=== PATIENT | male | born 1940 | race Caucasian/White ===

== ENCOUNTER → 2016-12-27 09:22 | Outpatient (CLI) | payer MEDICARE, OTHER ==
[2014-04-01 08:30] VITALS: BMI 22.8
[~2016-12-27 09:22] MED LIST: AMBIEN10 MG PO; BAYER CHEWABLE81 MG PO; DYAZIDE 37.5/251 CAP PO; FISH OIL 1,0001 CA1 PO; HYDROCHLOROTHIA25 MG PO; LIPITOR20 MG PO; LOPRESSOR25 MG PO; NEURONTIN 300300 MG PO; PLAVIX75 MG PO
[2017-02-21 07:23] VITALS: BMI 21.3
== END | disposition home or self-care (01) ==
LOC: D.CT 09:22
DX: I71.6 Thoracoabdominal aortic aneurysm, without rupture (principal)

== ENCOUNTER 2017-01-30 04:35 | Outpatient (CLI) | payer MEDICARE, OTHER ==
[~2017-01-30] VITALS: Ht 172.7 cm; Wt 61.8 kg
--- NOTE | ~2017-01-30 | HEMODYNAMI ---
PATIENT:LEAH GUSMAN MEDICAL RECORD: [id number] : 42 [id number] ADMISSION DATE: 01/30/17 Generatedon:01/30/201715:26 Patient name: LEAH GUSMAN Patient #: [id number] SSN: : 1940 Date of study: 01/30/2017 Page: Of Hemodynamic Procedure Report Patient Data Patient Demographics Procedure consent was obtained First Name: LEAH Gender: Male Last Name: NASEEM : 1940 [facility] Initial: THOMAS Age: 76 year(s) Patient #: [id number] Race: Unknown Additional ID: [id number] Contact details Address: [address] [place] [address] State: [place] City: [place] Zip code: [address] Past Medical History Allergies: No known allergies Admission Admission Data Admission Date: 01/30/2017 Admission Time: 5:16 Admit Source: Other Room #: D.2116 Lab Results Lab Result Date: 01/30/2017 Lab Result Time: 0:00 Biochemistry Name Units Result Min Max Creatinine mg/dl 1.4 --(----)*- 0.6 1.3 CBC Name Units Result Min Max Hemoglobin g/dl 16.7 --(---*)-- 13.5 17.5 Procedure Procedure Types Cath Procedure Diagnostic Procedure [facility] w/Coronaries PCI Procedure Coronary Stent Initial Miscellaneous Procedures Moderate Sedation up to 30 minutes Procedure Description Procedure Date Procedure Date: 01/30/2017 Procedure Start Time: 14:55 Procedure End Time: 15:26 Procedure Staff Name Function Pawel Das MD Performing Physician Sean Macias RT Scrub Jaleesa Booker RN Nurse Quique Davis RN Flight Engineer Erika Jordan RT Monitor Procedure Data Cath Procedure Fluoroscopy Diagnostic fluoroscopy Total fluoroscopy Time: 4.6 time: 4.6 min min Diagnostic fluoroscopy Total fluoroscopy dose: 601 dose: 601 mGy mGy Contrast Material Contrast Material Type Amount (ml) Isovue 300 105 Entry Location Entry Primary Successful Side Size Upsize Upsize Entry Closure Succes sful Closure Location (Fr) 1 (Fr) 2 (Fr) Remarks Device Remarks Femoral Right 5 Fr 6 Fr Exoseal artery Short Estimated blood loss: 10 ml Diagnostic catheters Device Type Used For End Catheter Placement Cordis 5Fr JL 4.0 Left Coronary Catheter (MP) Angiography Diagnostic Infinity 5Fr Right Coronary AL 1 catheter Angiography Cordis 5Fr Pigtail LV Angiography Catheter (MP) Procedure Complications No complications Procedure Medications Medication Administration Route Dosage Oxygen NC 2 l/min Lidocaine 2% added to field 20 Heparin Flush Bag added to field 2 bags (1000units/500ml NS) 0.9% NaCl I.V. 100 ml/hr Fentanyl I.V. 50 mcg Versed I.V. 1 mg Fentanyl I.V. 50 mcg Versed I.V. 1 mg Fentanyl I.V. 50 mcg Fentanyl I.V. 50 mcg Heparin Bolus I.V. 6500 units Plavix P.O. 600 mg Hemodynamics Rest HGB: 16.7 (g/dl) Heart Rate: 81 (bpm) Pressure Samples Time Site Value (mmHg) Purpose Heart Use Rate(bpm) 15:06 LV 107/-8,8 EDP 94 15:07 AO 98/58(75) Pullback 86 15:07 LV 109/-7,9 Pullback 86 Gradients Valve Time Site 1 Site 2 Mean SEP/DFP Peak To Heart Use (mmHg) (sec/min) Peak Rate (mmHg) (bpm) Aortic 15:07 LV AO 14 19 11 86 109/-7,9 98/58(75) Calculations Valve P-P Mean Valve Index Valve Source Name Gradient Area Flow (cm2) Aortic 11 14 11 14 Snapshots Pre Cath Intra NCS Post Cath Vital Signs Time Heart Resp SPO2 etCO2 AR9secm NIBP (mmHg) Rhythm Pain Sedation Rate (ipm) (%) (mmHg) (mmHg) Status Level (bpm) 14:41:41 96 16 95 0 0 134/74(108) NSR 0 (11) 10(A) , No pain 14:45:53 88 19 98 0 0 113/74(92) NSR 0 (11) 10(A) , No pain 14:50:05 79 18 98 0 0 103/70(86) NSR 0 (11) 10(A) , No pain 14:54:13 80 18 98 0 0 110/68(82) NSR 0 (11) 9(A) , No pain 14:58:23 104 18 97 0 0 113/71(86) NSR 0 (11) 9(A) , No pain 15:02:35 84 17 98 0 0 110/66(87) NSR 0 (11) 9(A) , No pain 15:06:45 79 18 97 0 0 113/69(92) NSR 0 (11) 9(A) , No pain 15:10:59 109 18 97 0 0 102/59(93) NSR 0 (11) 9(A) , No pain 15:15:09 124 18 98 0 0 107/61(87) NSR 0 (11) 9(A) , No pain 15:19:19 97 18 98 0 0 107/63(88) NSR 0 (11) 10(A) , No pain 15:23:28 96 18 98 0 0 102/64(77) NSR 0 (11) 10(A) , No pain Medications Time Medication Route Dose Verified Delivered Reason Notes Effectiveness by by 14:43:24 Oxygen NC 2 Quique Buffie used for l/min Ryan Booker foreign trade teacher RN 14:43:31 Lidocaine 2% added 20ml Quique Pawel for local to vial Ryan Das MD anesthetic field RN 14:43:47 Heparin Flush added 2 Pawel Pawel used for Bag to bags Thiago Das MD procedure (1000units/500ml field NS) 14:43:55 0.9% NaCl I.V. 100 Pawel Buffie Per physician ml/hr Thiago Booker RN 14:48:22 Fentanyl I.V. 50 Pawel Buffie for sedation mcg Thiago Booker RN 14:48:31 Versed I.V. 1 mg Pawel Buffie for sedation Thiago Booker RN 14:53:22 Fentanyl I.V. 50 Pawel Buffie for sedation mcg Thiago Booker RN 14:53:25 Versed I.V. 1 mg Pawel Buffie for sedation Thiago Booker RN 15:01:23 Fentanyl I.V. 50 Pawle Buffie for sedation mcg Thiago Booker RN 15:08:46 Fentanyl I.V. 50 Pawel Buffie for sedation mcg Thiago Booker RN 15:11:27 Heparin Bolus I.V. 6500 Pawel Lazcano for units Thiago Booker RN anticoagulation 15:18:54 Plavix P.O. 600 Pawel Lazcano for mg Thiago Booker RN antiplatelet therapy Procedure Log Time Note 14:18:13 Quique Davis RN sent for patient. Start room use. 14:27:41 Diagnostic Cath Status : Elective 14:28:20 Time tracking: Regular hours 14:28:24 Plan of Care:Hemodynamics will remain stable., Cardiac rhythm will remain stable., Comfort level will be maintained., Respiratory function will remain adequate., Patient/ family verbilizes understanding of procedure., Procedure tolerated without complication., Recovers from procedure without complications.. 14:28:29 Patient received from Pre/Post Procedure Room to CCL 1 Alert and oriented. Tansferred to table in Supine position. 14:28:30 Warm blankets applied, and agatha hugger turned on for patient comfort. 14:28:30 Correct patient and procedure confirmed by team. 14:28:31 Signed procedure consent form obtained from patient. 14:28:32 ECG and BP/O2 sat monitors applied to patient. 14:28:33 Full Disclosure recording started 14:28:36 Use device set Femoral Dx 14:28:37 Acist Syringe opened to sterile field. 14:28:37 Bag Decanter opened to sterile field. 14:28:38 Medline Cath Pack opened to sterile field. 14:28:38 Terumo 5Fr [place]ot Sheath opened to sterile field. 14:28:39 St Ethan 260cm J .035 wire opened to sterile field. 14:28:39 Acist Hand Control opened to sterile field. 14:28:40 Acist Manifold opened to sterile field. 14:28:40 Diagnostic Infinity 5Fr Multipack catheter opened to sterile field. 14:28:41 Tegaderm 4 x 4 opened to sterile field. 14:40:32 Vital chart was started 14:40:36 Rhythm: sinus rhythm 14:40:49 H&P Date Dictated: 01/30/2017 Within 30 days and on chart.. 14:40:51 Pre-procedure instructions explained to patient. 14:40:51 Pre-op teaching completed and patient verbalized understanding. 14:40:52 Family in waiting room. 14:40:54 Patient NPO since Midnight. 14:41:02 Patient allergic to No known allergies 14:41:05 Is the patient allergic to Iodine/contrast media? No. 14:41:38 Is patient on blood thinner?No 14:41:42 Patient diabetic? No. 14:41:56 Previous problem with sedation/anesthesia? No ? 14:41:58 Snore? Yes 14:42:00 Sleep apnea? No 14:42:01 Deviated septum? No 14:42:02 Opens mouth fully? Yes 14:42:03 Sticks out tongue? Yes 14:42:06 Airway obstruction? No ? 14:42:11 Dentures? Yes In 14:42:16 Pre procedure: right dorsailis pedis pulse 2+ Normal; easily identifiable; not easily obliterated 14:42:20 Patient pain scale 0/10 ?. 14:42:36 IV patent on arrival in right forearm with 0.9% NaCl at [facility]. 14:43:02 Lab Result : Creatinine 1.4 mg/dl 14:43:02 Lab Result : Hemoglobin 16.7 g/dl 14:43:06 Lab results completed and on chart. 14:43:09 Right groin area was prepped with chlora-prep and draped in sterile fashion 14:43:10 Alarms reviewed by R. N. 14:43:10 Sharps counted by scrub and verified by R.N. 14:43:15 Baseline sample Acquired. 14:43:21 Admit Source: Other 14:43:24 Oxygen 2 l/min NC was given by Jaleesa Booker RN; used for procedure; 14:43:31 Lidocaine 2% 20ml vial added to field was given by Pawel Das MD; for local anesthetic; 14:43:47 Heparin Flush Bag (1000units/500ml NS) 2 bags added to field was given by Pawel Das MD; used for procedure; 14:43:55 0.9% NaCl 100 ml/hr I.V. was given by Jaleesa Booker RN; Per physician; 14:45:07 IV Extension Set opened to sterile field. 14:47:46 Final Timeout: patient, procedure, and site verified with staff and physician. All members of the team are in agreement. 14:47:50 Right groin site verified by team. 14:47:53 Physical assessment completed. ASA score P 2 - A patient with mild systemic disease as per Pawel Das MD. 14:47:57 Sedation plan: IV Moderate Sedation Versed, Fentanyl 14:48:22 Fentanyl 50 mcg I.V. was given by Jaleesa Booker RN; for sedation; 14:48:31 Versed 1 mg I.V. was given by Jaleesa Booker RN; for sedation; 14:51:34 Zero performed for pressure channel P1 14:51:40 Zero performed for pressure channel P1 14:52:04 Procedure started. 14:53:22 Fentanyl 50 mcg I.V. was given by Jaleesa Booker RN; for sedation; 14:53:25 Versed 1 mg I.V. was given by Jaleesa Booker RN; for sedation; 14:55:00 Local anesthetic to right femoral artery with Lidocaine 2% by Pawel Das MD.INITIAL ACCESS ONLY 14:55:58 A 5 Fr sheath was inserted into the Right Femoral artery 14:56:21 A Cordis 5Fr JL 4.0 Catheter (MP) was advanced over the wire and used for Left Coronary Angiography. 14:57:59 140Fire BasixCompak Inflation Kit opened to sterile field. 14:57:59 Miles BMW Meherrin 2 J-tip 300cm 0.014 guide wir opened to sterile field. 14:58:00 High Pressure Extension Tubing (Thiago) opened to sterile field. 14:58:09 Terumo 6Fr [place]ot Sheath opened to sterile field. 15:00:05 Catheter removed. 15:01:17 A Diagnostic Infinity 5Fr AL 1 catheter was advanced over the wire and used for Right Coronary Angiography. 15:01:23 Fentanyl 50 mcg I.V. was given by Jaleesa Booker RN; for sedation; 15:04:54 Catheter removed. 15:05:06 Cordis 6FR XBLAD 3.5 guide catheter opened to sterile field. 15:05:13 A Cordis 5Fr Pigtail Catheter (MP) was advanced over the wire and used for LV Angiography. 15:06:24 LV gram done using CROWELL 15:06:25 LV hemodynamics recorded. 15:06:28 Injector settings: Ml/sec: 10, Volume: 20, 15:06:38 EF : 50 % 15:07:37 Catheter removed. 15:08:03 Sheath upsized to a 6 Fr Short. 15:08:46 Fentanyl 50 mcg I.V. was given by Buffie Booker RN; for sedation; 15:09:55 6 Fr XBLAD 3.5 guide catheter was inserted over the wire 15:11:27 Heparin Bolus 6500 units I.V. was given by Jaleesa Booker RN; for anticoagulation; 15:12:11 BMW wire advanced. 15:16:07 Inflation Number: 1 A Medtronic Resolute 3.0 X 26 stent was prepped and advanced across the Prox LAD. The stent was deployed at 13 SELVIN for 0:33 (min:sec). 15:17:32 Stent catheter was removed intact over wire. 15:17:33 Wire removed. 15:17:33 Guide catheter removed. 15:17:48 Sheath removed intact; hemostasis achieved with Exoseal to the Right Femoral artery. 15:17:59 Cordis 6Fr Exoseal opened to sterile field. 15:18:03 Procedure ended.(Physican Out) 15:18:54 Plavix 600 mg P.O. was given by Jaleesa Booker RN; for antiplatelet therapy; 15:19:04 Fluoroscopy time 04.60 minutes. 15:19:10 Flurop Dose total: 601 15:19:10 Fluoroscopy dose: 601 mGy 15:19:14 Contrast amount:Isovue 300 105ml. 15:19:15 Sharps counted by scrub and verified by R.N. 15:19:17 Insertion/operative site no bleeding no hematoma. 15:19:21 Post-op/insertion site Right Femoral artery dressed using a 4 x 4 and Tegaderm. 15:19:24 Post right femoral artery:stable, clean and dry 15:19:25 Post Procedure Pulses reassessed and unchanged 15:19:27 Post-procedure physical assessment completed. ASA score P 2 - A patient with mild systemic disease as per Pawel Das MD. 15:19:29 Post procedure rhythm: unchanged. 15:19:33 Estimated blood loss: 10 ml 15:19:35 Post procedure instruction explained to patient.Patient verbalizes understanding. 15:19:35 Patient needs reinforcement of post procedure teaching. 15:19:55 Procedure type changed to Cath procedure, Diagnostic procedure, LHC, LHC w/Coronaries, PCI procedure, Coronary Stent Initial, Miscellaneous Procedures, Moderate Sedation up to 30 minutes 15:21:04 Procedure Complication : No complications 15:21:06 See physician's report for complete and final results. 15:24:00 Procedure and supply charges have been captured, reviewed, submitted and are correct. 15:26:04 Vital chart was stopped 15:26:06 Report given to Pre/Post Procedure Room. 15:26:09 Patient transfered to Pre/Post Procedure Room with Stretcher. 15:26:19 Procedure ended. 15:26:19 Full Disclosure recording stopped 15:26:23 End room use (Document Last) Intervention Summary Intervention Notes Time ActionType Lesion and Equipment Action# Pressure Duration Attributes Used 15:16:07 Place stent Prox LAD Medtronic 1 13 00:33 Resolute 3.0 X 26 stent Device Usage Item Name Manufacture Quantity Catalog Hospital Part Current Minimal Lot# / Number Charge Number Stock Stock Serial# Code Acist Acist 1 29071 106833 779170 102638 20 Syringe Medical Systems Inc Bag Microtek 1 2002S 423878 33072 446987 5 Decanter Medical Inc. Medline Cardinal 1 [id number] 232159 57901 911088 5 Cath Pack Health Terumo 5Fr Terumo 1 PAG135 212180 654424 718799 [address] [facility] Ethan 1 303083 430588 411448 905540 30 260cm J .035 wire Acist Hand Acist 1 61808 436675 118513 352413 5 Control Medical Systems Inc Acist Acist 1 67531 128862 811400 146365 5 Manifold Medical Systems Inc Diagnostic Cardinal 1 NL2191 090892 91864 835165 30 Auris Medical 5Fr Multipack catheter Tegaderm 4 3M 1 1626W 584608 539648 837258 5 x 4 IV Hospira 1 82688-77 723835 20949 881879 5 Extension Set Cordis 5Fr Cardinal 1 686297 5 JL 4.0 Health Catheter (MP) Merit Merit 1 AB5735 538060 366576 538435 15 BasixCompak Medical Inflation Kit Miles BMW Miles 1 [id number] 004272 006595 842927 5 Meherrin 2 Vascular J-tip 300cm 0.014 guide wir High Merit 1 [id number] 206641 52246 745519 10 Pressure Medical Extension Tubing (Das) Terumo 6Fr Terumo 1 XYB350 528247 858797 198501 40 Man[place] Sabot Sheath Diagnostic Cardinal 1 135640M 199618 150916 485667 15 Infinity Health 5Fr AL 1 catheter Cordis 6FR Cardinal 1 [id number] 948425 576444 580608 10 XBLAD 3.5 Health guide catheter Cordis 5Fr Cardinal 1 542556 5 Pigtail Health Catheter (MP) Medtronic Medtronic 1 [id number] 135205 155871 3 [id number] Resolute 3.0 X 26 stent Cordis 6Fr Cardinal 1 EX600 166804 773736 933810 10 [facility] [employer] Signature Audit [place] Stage Time Signature Unsigned Intra-Procedure 01/30/2017 Erika 3:26:37 PM Counts RT(R) Signatures Monitor : Erika Signature : Counts RT Date : Time : [address] [address]
[~2017-01-30 04:35] MED LIST changes: -AMBIEN10 MG PO; -DYAZIDE 37.5/251 CAP PO
[2017-01-30 05:03] LABS: BASOPHILS 0.3 % (0.0-2.0); EOSINOPHILS 1.1 % (0-7); HEMOGLOBIN 16.7 g/dL (13.5-17.5); IMMATURE GRANULOCYTES 0.3 % (0-5); LYMPHOCYTES 13.4 % (15-50); MCHC 34.8 g/dL (31.0-37.0); MEAN PLATELET VOLUME 10.7 fL (7.4-10.4); MONOCYTES 9.9 % (2-11); PLATELET COUNT 153 10x3/uL (130-400); RBC 5.22 10x6/uL (4.20-6.10); RDW 12.5 % (11.5-14.5); WBC 11.9 10x3/uL (4.8-10.8)
[2017-01-30 05:24] LABS: ALBUMIN 3.7 g/dL (3.4-5.0); ALKALINE PHOSPHATASE 74 U/L (46-116); ALT (SGPT) 26 U/L (10-68); BILIRUBIN - TOTAL 1.27 mg/dL (0.2-1.3); CALC OSMOLALITY 281 mosm/kg (275-300); CALCIUM 9.5 mg/dL (8.5-10.1); CARBON DIOXIDE 31.3 mmol/L (21.0-32.0); CHLORIDE - SERUM 101 mmol/L (98-107); CREATININE - SERUM 1.4 mg/dL (0.6-1.3); GLUCOSE 131 mg/dL (74-106); PROTEIN - SERUM 7.4 g/dL (6.4-8.2); SODIUM 139 mmol/L (136-145); UREA NITROGEN 18 mg/dL (7-18); eGFR NON AFRICAN AMERICAN 52 mL/min (90-120)
[2017-01-30 05:35] LABS: CHOL - HDL RATIO 2.5 ratio (2.3-4.9); CHOLESTEROL, TOTAL 171 mg/dL (0-200); CKMB 1.2 U/L (0.0-3.6); CREATINE KINASE 106 UL (21-232); HDL CHOLESTEROL 69 mg/dL (32-96); LDL CHOLESTEROL 90 mg/dL (0-100); LDL-HDL RATIO 1.3 ratio (1.5-3.5); TRIGLYCERIDE 61 mg/dL (30-200)
[2017-01-30 05:36] LABS: TROPONIN-I < 0.017 ng/mL (0.000-0.060)
--- NOTE | 2017-01-30 07:04 | NUR ---
NEW ADMIT FROM ER BY W/C. JHONYINTED TO ROOM. CALL LIGHT IN REACH. WILL CONT. PLAN OF CARE.
[2017-01-30 07:55] VITALS: BP 88/56; Ht 172.7 cm; Wt 61.8 kg
[2017-01-30 08:05] VITALS: BP 88/56
[2017-01-30] MEDS ORDERED: DYAZIDE 37.5/251 CAP PO (08:17)
--- NOTE | 2017-01-30 10:15 | NUR ---
MORPHINE 4MG GIVEN FOR C/O C/P. CONSENTS SIGNED FOR [facility]. WILL CONT. PLAN OF CARE.
--- NOTE | 2017-01-30 14:15 | NUR ---
PRE-OPS GIVEN. TO OLERICULTURE TEACHER BY BED.
--- NOTE | 2017-01-30 15:43 | NUR ---
BACK FROM PERINATAL BREASTFEEDING ASSISTANT. RIGHT GROIN STABLE WITHOUT BLEEDING OR HEMATOMA NOTED. WILL MONITOR.
--- NOTE | 2017-01-30 19:39 | NUR ---
RESUMED CARE OF PT, LYING IN BED RESPIRATIONS EVEN AND UNLABORED ON 2LPM VIA NC. 76 SR ON TELEMETRY. RIGHT FOREARM NS @ 100. NO NEEDS NOTED AT THIS TIME. WILL CONTINUE TO MONITOR. SEE NURSE ASSESSMENT. CALL LIGHT IN REACH.
--- NOTE | 2017-01-30 23:49 | NUR ---
MORPHINE 4MG IVP FOR CHEST PAIN 8:10. STATES THE PAIN IS JUST BAD IF NOT A LITTLE WORSE THAN WHEN HE CAME TO THE ER.
[2017-01-31] VITALS: BP 112/61
[2017-01-31 04:00] VITALS: BP 97/43
--- NOTE | 2017-01-31 06:26 | NUR ---
NO CHANGES FROM PREVIOUS ASSESSMENT, CALL LIGHT IN REACH. WILL CONTINUE TO WITH PLAN OF CARE.
[2017-01-31 08:00] VITALS: BP 101/66
--- NOTE | 2017-01-31 09:50 | NUR ---
TELEMETRY SR WITH FREQUENT PVCS NOTED. JOCELYNE AT BS. CALL LIGHT IN REACH. NEW BRUNO.
--- NOTE | 2017-01-31 10:05 | NUR ---
AMBULATES HALLWAY. STATES PAIN IN CHEST IS SUBSIDING.
[2017-01-31 11:23] VITALS: BP 103/65
[2017-01-31] MEDS ORDERED: PLAVIX75 MG PO (12:01)
--- NOTE | 2017-01-31 12:41 | NUR ---
IV AND TELEMETRY DCD. DC PLANS GIVEN. UNDERSTANDING VOICED. ESCORTED TO CAR BY W/C.
--- NOTE | 2017-02-12 08:17 | OP ---
PATIENT NAME: LEAH GUSMAN MEDICAL RECORD: [id number] :42 LOCATION:D.CAT ADMISSION DATE: SURGEON: NORA NARANJO M.D. DATE OF OPERATION: 01/30/2017 Catheterization Report PROCEDURES PERFORMED: 1. Selective coronary angiography. 2. Left heart catheterization with ventriculogram. 3. PTCA and stent placed in the LAD. INDICATION: A 76-year-old gentleman, who presents with unstable angina and a history of coronary artery disease. EQUIPMENT USED: Diagnostic 5-[place] JL4, AL1, pigtail catheter. INTERVENTION: A 6-[place] XB LAD guide, BMW guidewire, 3.0 x 26 mm Resolute stent. TECHNIQUE: A 5-[place] sheath was inserted in retrograde fashion in the right common femoral artery. Next, selective coronary angiography was performed in standard 5-[place] JL4 and AL1 catheters. Left heart catheterization was performed using pigtail catheter. CORONARY ANATOMY: 1. Left main: Left main trunk is moderate in caliber. It gives rise to the LAD and circumflex. There is no obstruction. 2. LAD: This is a large caliber vessel extending to the apex. The proximal mid vessel demonstrates a 90% in-stent restenosis. The mid distal vessels have been stented. There is mild restenosis seen, but does not appear to be worse than 40%. 3. Circumflex: This vessel is moderate in caliber. It has mild irregularities throughout its course, but nothing worse than 30%. 4. Right coronary artery: This vessel actually arises from the noncoronary cusp. The proximal mid vessel has been stented. There appears to be a discrete 70% to 80% in-stent restenosis in the mid portion. 5. Left ventricle: Left ventricle is normal size. No wall motion abnormalities are noted. Estimated ejection fraction is lower limits of normal around 50%. DESCRIPTION OF INTERVENTION: A 6-[place] sheath was inserted in retrograde fashion in the right common femoral artery. Next, 100 units per kilogram of heparin was infused. A 6-[place] XB LAD guide was advanced and engaged in the left main coronary artery. Next, a BMW guide wire was placed in the distal vessel. A 3.0 x 26 mm Integrity stent was placed across the stenosis. The stent was then deployed at 14 atmospheres. Injection shows stent to be patent, but a residual 20% stenosis. It was felt further dilation inside the stent might result in vessel perforation. At this point, the wire and guide were removed. IMPRESSION: Successful percutaneous transluminal coronary angioplasty and stent of the left anterior descending for in-stent restenosis. PLAN: I will likely stage him and bring him back in 1 week to perform stenting OPERATIVE REPORT [id number] LEAH GUSMAN to the right coronary artery. TRANSINT:[id number] Voice Confirmation ID: [id number] DOCUMENT ID: [id number] NORA NARANJO M.D. at 0817 CC: [id number] DICTATION DATE: 01/30/17 1527 TRANSPORTER DRIVER: 01/30/17 2324 [facility] CLI 01/31/17 [id number] [place] [address]
== END 2017-01-31 12:42 | disposition home or self-care (01) ==
LOC: OBSVTIME → D.CATH 04:35 → D.ER 04:35 → D.M2 05:16 → OBSVTIME 05:16 → D.ER 05:16 → EDSTATUS 11:30 → D.M2 01-31 12:42 → D.CATH 01-31 12:42
PROVIDERS: Emergency Medicine
DX: I25.110 Atherosclerotic heart disease of native coronary artery with unstable angina pectoris (principal); T82.855A Stenosis of coronary artery stent, initial encounter

== ENCOUNTER 2017-02-21 07:03 | Outpatient (CLI) | payer MEDICARE, OTHER ==
[~2017-02-21] VITALS: Ht 172.7 cm; Wt 63.6 kg
--- NOTE | ~2017-02-21 | HEMODYNAMI ---
PATIENT:LEAH GUSMAN MEDICAL RECORD: [id number] : 42 LOCATION:DMart[facility]CAT ADMISSION DATE: 02/21/17 Generatedon:02/21/201710:12 Patient name: LEAH GUSMAN Patient #: [id number] SSN: : 1940 Date of study: 02/21/2017 Page: Of Hemodynamic Procedure Report Patient Data Patient Demographics Procedure consent was obtained First Name: LEAH Gender: Male Last Name: NASEEM : 1940 [facility] Initial: THOMAS Age: 76 year(s) Patient #: [id number] Race: Unknown Additional ID: [id number] Contact details [address]: [address] [place] [address] State: [place] City: [place] Zip code: [address] Past Medical History Allergies: No known allergies Admission Admission Data Admission Date: 02/21/2017 Admission Time: 7:03 Lab Results Lab Result Date: 02/21/2017 Lab Result Time: 0:00 Biochemistry Name Units Result Min Max BUN mg/dl 19 --(----)*- 7 18 Creatinine mg/dl 1.1 --(--*-)-- 0.6 1.3 CBC Name Units Result Min Max Hemoglobin g/dl 15.4 --(-*--)-- 13.5 17.5 Procedure Procedure Types Cath Procedure PCI Procedure Coronary Stent Initial Miscellaneous Procedures Moderate Sedation up to 45 minutes Procedure Description Procedure Date Procedure Date: 02/21/2017 Procedure Start Time: 9:29 Procedure End Time: 10:10 Procedure Staff Name Function Pawel Das MD Performing Physician Quique Davis RN Nurse Aron Lopez RT Monitor Randell Robertson RT Scrub Procedure Data Cath Procedure Fluoroscopy Diagnostic fluoroscopy Total fluoroscopy Time: time: 15.2 min 15.2 min Diagnostic fluoroscopy Total fluoroscopy dose: 581 dose: 581 mGy mGy Contrast Material Contrast Material Type Amount (ml) Isovue 300 125 Entry Location Entry Primary Successful Side Size Upsize Upsize Entry Closure Succes sful Closure Location (Fr) 1 (Fr) 2 (Fr) Remarks Device Remarks Femoral Left 6 Fr 6 Fr Exoseal artery Short Long Procedure Complications No complications Procedure Medications Medication Administration Route Dosage Oxygen NC 2 l/min Heparin Flush Bag added to field 2 bags (1000units/500ml NS) 0.9% NaCl I.V. 100 ml/hr Fentanyl I.V. 50 mcg Versed I.V. 1 mg Fentanyl I.V. 50 mcg Versed I.V. 1 mg Versed I.V. 1 mg Versed I.V. 1 mg Heparin Bolus I.V. 6500 units Fentanyl I.V. 50 mcg Fentanyl I.V. 50 mcg Hemodynamics Rest HGB: 15.4 (g/dl) Heart Rate: 59 (bpm) Snapshots Pre Cath Intra NCS Post Cath Vital Signs Time Heart Resp SPO2 etCO2 [id number] NIBP (mmHg) Rhythm Pain Sedatio n Rate (ipm) (%) (mmHg) (mmHg) Status Level (bpm) 9:14:28 65 18 100 0 0 165/97(128) NSR 0 (11) 10(A) , No pain 9:18:47 62 17 95 0 0 148/93(127) NSR 0 (11) 10(A) , No pain 9:22:58 66 16 97 0 0 142/100(119) NSR 0 (11) 10(A) , No pain 9:27:10 66 17 100 0 0 137/86(115) NSR 0 (11) 9(A) , No pain 9:31:24 69 18 100 0 0 132/77(115) NSR 0 (11) 9(A) , No pain 9:35:36 78 18 100 0 0 123/76(110) NSR 0 (11) 9(A) , No pain 9:39:44 76 18 100 0 0 129/78(106) NSR 0 (11) 9(A) , No pain 9:43:56 82 19 100 0 0 108/73(93) NSR 0 (11) 9(A) , No pain 9:48:55 76 19 100 0 0 120/70(97) NSR 0 (11) 9(A) , No pain 9:53:01 71 18 100 0 0 115/79(90) NSR 0 (11) 9(A) , No pain 9:57:07 73 17 100 0 0 118/75(95) NSR 0 (11) 9(A) , No pain 10:01:14 80 19 100 0 0 114/75(91) NSR 0 (11) 9(A) , No pain 10:05:12 67 18 100 0 0 110/75(90) NSR 0 (11) 9(A) , No pain 10:08:12 66 17 100 0 0 117/66(95) NSR 0 (11) 9(A) , No pain Medications Time Medication Route Dose Verified Delivered Reason Notes Effectiveness by by 9:17:43 Oxygen NC 2 Quique Quique Per physician l/min Ryan Davis RN RN 9:17:51 Heparin Flush added 2 Quique Quique used for Bag to bags Ryan Davis RN procedure (1000units/500ml field RN NS) 9:18:03 0.9% NaCl I.V. 100 Quique Quique Per physician ml/hr Ryan Davis RN RN 9:20:07 Fentanyl I.V. 50 Quique Quique for sedation mcg Ryan Davis RN RN 9:20:15 Versed I.V. 1 mg Quique Quique for sedation Ryan Davis RN RN 9:22:30 Fentanyl I.V. 50 Quique Quique for sedation mcg Ryan Davis RN RN 9:22:34 Versed I.V. 1 mg Quique Quique for sedation Ryan Davis RN RN 9:29:06 Versed I.V. 1 mg Quique Quique for sedation Ryan Davis RN RN 9:31:42 Versed I.V. 1 mg Quique Quique for sedation Ryan Davis RN RN 9:39:05 Heparin Bolus I.V. 6500 Quique Quique for units Ryan Davis RN anticoagulation RN 9:52:21 Fentanyl I.V. 50 Quique Quique for sedation mcg Ryan Davis RN RN 10:00:13 Fentanyl I.V. 50 Quique Quique for sedation mcg Ryan Davis RN linesperson Log Time Note 8:55:03 Quique Davis RN sent for patient. Start room use. 8:58:11 Time tracking: Regular hours 8:58:16 Plan of Care:Hemodynamics will remain stable., Cardiac rhythm will remain stable., Comfort level will be maintained., Respiratory function will remain adequate., Patient/ family verbilizes understanding of procedure., Procedure tolerated without complication., Recovers from procedure without complications.. 9:11:11 Patient received from Pre/Post Procedure Room to CCL 1 Alert and oriented. Tansferred to table in Supine position. 9:11:12 Warm blankets applied, and agatha hugger turned on for patient comfort. 9:11:13 Correct patient and procedure confirmed by team. 9:11:14 Signed procedure consent form obtained from patient. 9:11:14 ECG and BP/O2 sat monitors applied to patient. 9:13:18 Vital chart was started 9:17:06 Baseline sample Acquired. 9:17:14 Rhythm: sinus rhythm 9:17:16 Full Disclosure recording started 9:17:34 H&P Date Dictated: 01/30/2017 Within 30 days and on chart., H&P Addendum completed by physician on day of procedure. (MUST COMPLETE FOR ALL OUTPATIENTS). 9:17:36 Pre-procedure instructions explained to patient. 9:17:36 Pre-op teaching completed and patient verbalized understanding. 9:17:37 Family in waiting room. 9:17:39 Patient NPO since Midnight. 9:17:43 Oxygen 2 l/min NC was administered by Quique Davis RN; Per physician; 9:17:48 Patient allergic to No known allergies 9:17:50 Is the patient allergic to Iodine/contrast media? No. 9:17:51 Heparin Flush Bag (1000units/500ml NS) 2 bags added to field was administered by Quique Davis RN; used for procedure; 9:17:53 Is patient on blood thinner?Yes 9:17:58 ACC The patient was administered the following blood thiners within the last 24 hours: ACCPlavix 9:18:01 Patient diabetic? No. 9:18:02 ----Pre-sedation anethsthesia assessment.---- 9:18:03 0.9% NaCl 100 ml/hr I.V. was administered by Quique Davis RN; Per physician; 9:18:05 Previous problem with sedation/anesthesia? No ? 9:18:06 Snore? Yes 9:18:08 Sleep apnea? No 9:18:09 Deviated septum? No 9:18:10 Opens mouth fully? Yes 9:18:12 Sticks out tongue? Yes 9:18:14 Airway obstruction? No ? 9:18:17 Dentures? Yes in tight 9:18:21 Pre procedure: left dorsailis pedis pulse 1+ Palpable, but thready & weak; easily obliterated 9:18:25 Patient pain scale 0/10 ?. 9:18:28 IV patent on arrival in left hand with 0.9% NaCl at 10ml/hr. 9:18:46 Lab Result : BUN 19 mg/dl 9:18:46 Lab Result : Hemoglobin 15.4 g/dl 9:18:46 Lab Result : Creatinine 1.1 mg/dl 9:18:50 Lab results completed and on chart. 9:18:53 Left groin area was prepped with chlora-prep and draped in sterile fashion 9:18:54 Alarms reviewed by R. N. 9:18:54 Sharps counted by scrub and verified by R.N. 9:18:55 --------ALL STOP TIME OUT------ 9:18:56 Final Timeout: patient, procedure, and site verified with staff and physician. All members of the team are in agreement. 9:18:57 Left groin site verified by team. 9:19:01 Physical assessment completed. ASA score P 2 - A patient with mild systemic disease as per Pawel Das MD. 9:19:04 Sedation plan: IV Moderate Sedation Versed, Fentanyl 9:20:07 Fentanyl 50 mcg I.V. was administered by Quique Davis RN; for sedation; 9:20:15 Versed 1 mg I.V. was administered by Quique Davis RN; for sedation; 9:21:02 Use device set Femoral PCI 9:21:03 Acist Syringe opened to sterile field. 9:21:04 Acist Hand Control opened to sterile field. 9:21:04 Bag Decanter opened to sterile field. 9:21:05 Medline Cath Pack opened to sterile field. 9:21:05 Terumo 6Fr [place] Sheath opened to sterile field. 9:21:05 St Ethan 260cm J .035 wire opened to sterile field. 9:21:06 Merit BasixCompak Inflation Kit opened to sterile field. 9:21:06 Acist Manifold opened to sterile field. 9:21:06 Tegaderm 4 x 4 opened to sterile field. 9:21:12 High Pressure Extension Tubing (Das) opened to sterile field. 9:21:17 Miles BMW [place] 2 J-tip 300cm 0.014 guide wir opened to sterile field. 9:21:33 Medtronic Launcher 6Fr [place] 1.0 guide catheter opened to sterile field. 9:22:30 Fentanyl 50 mcg I.V. was administered by Quique Davis RN; for sedation; 9::34 Versed 1 mg I.V. was administered by Quique Davis RN; for sedation; 9:27:27 Zero performed for pressure channel P1 9:29:06 Versed 1 mg I.V. was administered by Quique Davis RN; for sedation; 9:29:15 Procedure started. 9:29:58 Local anesthetic to left femerol artery with Lidocaine 2% by Pawel Das MD.INITIAL ACCESS ONLY 9:30:07 A 6 Fr Short sheath was inserted into the Left Femoral artery 9:31:26 6 Fr AL 1 guide catheter was inserted over the wire 9:31:42 Versed 1 mg I.V. was administered by Quique Davis RN; for sedation; 9:34:32 Guide Catheter removed. unable to cannulate vessel. 9:34:42 Terumo 6Fr [place] Destination Sheath opened to sterile field. 9:34:55 Sheath upsized to a 6 Fr Long. 9:37:02 6 Fr AL 1 guide catheter was inserted over the wire 9:39:05 Heparin Bolus 6500 units I.V. was administered by Quique Davis RN; for anticoagulation; 9:42:53 Guide catheter removed. 9:42:59 Medtronic Launcher 6Fr AL 2.0 guide catheter opened to sterile field. 9:43:10 6 Fr AL 2 guide catheter was inserted over the wire 9:48:14 Guide Catheter removed. unable to cannulate vessel. 9:51:30 6 Fr 3D RIGHT guide catheter was inserted over the wire 9:51:34 BMW wire advanced. 9:52:21 Fentanyl 50 mcg I.V. was administered by Quique Davis RN; for sedation; 9:58:34 Inflation Number: 1 A Medtronic Resolute 3.0 X 22 stent was prepped and advanced across the Mid RCA. The stent was deployed at 14 SELVIN for 0:19 (min:sec). 9:58:36 Stent catheter was removed intact over wire. 10:00:13 Fentanyl 50 mcg I.V. was administered by Quique Davis RN; for sedation; 10:01:27 Inflation number: 1 A NC Euphora 3.5 x 12 balloon was prepped and advanced across the Mid RCA1, then inflated to 14 SELVIN for 0:33 (min:sec). 10:01:56 Balloon removed over the wire. 10:02:02 Wire removed. 10:02:02 Guide catheter removed. 10:02:18 Cordis 6Fr Exoseal opened to sterile field. 10:03:17 Sheath removed intact; hemostasis achieved with Exoseal to the Left Femoral artery. 10:03:19 Procedure ended.(Physican Out) 10:03:35 Fluoroscopy time 15.20 minutes. 10:03:43 Flurop Dose total: 581 10:03:43 Fluoroscopy dose: 581 mGy 10:03:48 Contrast amount:Isovue 300 125ml. 10:03:50 Sharps counted by scrub and verified by R.N. 10:03:51 Insertion/operative site no bleeding no hematoma. 10:03:53 Post-op/insertion site Left Femoral artery dressed using a 4 x 4 and Tegaderm. 10:03:59 Post left femerol artery:stable 10:04:03 Post Procedure Pulses reassessed and unchanged 10:04:11 Post procedure: left dorsailis pedis pulse 1+ Palpable, but thready & weak; easily obliterated. 10:04:14 Post procedure rhythm: sinus rhythm 10:04:16 Post procedure instruction explained to patient.Patient verbalizes understanding. 10:09:42 Procedure type changed to Cath procedure, PCI procedure, Coronary Stent Initial, Miscellaneous Procedures, Moderate Sedation up to 45 minutes 10:09:45 Procedure and supply charges have been captured, reviewed, submitted and are correct. 10:10:15 Medtronic Launcher 6Fr 3DRIGHT guide catheter opened to sterile field. 10:10:43 Procedure Complication : No complications 10:10:46 Vital chart was stopped 10:10:46 See physician's report for complete and final results. 10:10:48 Report given to Pre/Post Procedure Room. 10:10:52 Patient transfered to Pre/Post Procedure Room with Stretcher. 10:10:56 Procedure ended. 10:10:56 Full Disclosure recording stopped 10:11:12 End room use (Document Last) Intervention Summary Intervention Notes Time ActionType Lesion and Equipment Action# Pressure Duration Attributes Used 9:58:34 Place stent Mid RCA Medtronic 1 14 00:19 Resolute 3.0 X 22 stent 10:01:27 Inflate Mid RCA1 NC 1 14 00:33 balloon Euphora 3.5 x 12 balloon Device Usage Item Name Manufacture Quantity Catalog Hospital Part Current Minimal Lot# / Number Charge Number Stock Stock Serial# Code Acist Acist 1 51240 120117 128479 705968 20 Syringe Medical Systems Inc Acist Hand Acist 1 66982 262248 489390 874391 5 Red Butler [employer] Inc Bag Microtek 1 2002S 760142 92080 272907 5 ConceptoMed Medical Inc. Medline Cardinal 1 [id number] 132286 39165 095827 5 Cath Pack Health Terumo 6Fr Terumo 1 [id number] 142344 926578 345709 [address] St Ethna 1 993717 271696 065090 748839 30 260cm J .035 wire Merit Merit 1 [id number] 962823 710623 209849 15 BasixCorsair Medical Inflation Kit Acist Acist 1 78603 945368 770288 071513 5 Options Away Medical Systems Inc Tegaderm 4 3M 1 1626W 618495 785403 679965 5 x 4 High Merit 1 [id number] 739063 30329 006849 10 Pressure Medical Extension Tubing (Das) Miles BMW Miles 1 [id number] 420888 593135 555965 5 [place] 2 Vascular J-tip 300cm 0.014 guide wir Medtronic Medtronic 1 [id number] 780712 36689 145812 1 Launcher 6Fr [place] 1.0 guide catheter Terumo 6Fr Terumo 1 RSR01 753958 48237 341814 5 [place] Destination Sheath Medtronic Medtronic 1 [id number] 211216 92444 829295 1 Launcher 6Fr [place] 2.0 guide catheter Medtronic Medtronic 1 [id number] 121244 066770 5 [id number] Resolute 3.0 X 22 stent NC Euphora Medtronic 1 [id number] 201106 746499 737532 1 [id number] 3.5 x 12 balloon Cordis 6Fr Cardinal 1 EX600 172298 161409 209310 10 Carbon Blacktronic 1 [id number] 195614 804055 007522 1 Launcher 6Fr 3DRIGHT guide catheter Signature Audit [place] Stage Time Signature Unsigned Intra-Procedure 02/21/2017 Aron Lopez 10:12:06 AM RT(R) Signatures Monitor : Aron Lopez RT Signature : Date : Time : [place] [address] [place] [address]
[~2017-02-21 07:03] MED LIST changes: +DYAZIDE 37.5/251 CAP PO
[2017-02-21] MEDS ORDERED: AMBIEN10 MG PO (07:15)
[2017-02-21 07:23] VITALS: BP 130/83; Ht 172.7 cm; Wt 63.6 kg
[2017-02-21 07:48] LABS: BASOPHILS 0.3 % (0.0-2.0); EOSINOPHILS 4.3 % (0-7); HEMATOCRIT 44.2 % (42.0-54.0); HEMOGLOBIN 15.4 g/dL (13.5-17.5); IMMATURE GRANULOCYTES 0.1 % (0-5); LYMPHOCYTES 20.8 % (15-50); MCH 31.8 pg (26.0-34.0); MCHC 34.8 g/dL (31.0-37.0); MCV 91.3 fL (80.0-100.0); MEAN PLATELET VOLUME 10.4 fL (7.4-10.4); MONOCYTES 11.2 % (2-11); NEUTROPHILS 63.3 % (40-80); PLATELET COUNT 184 10x3/uL (130-400); RBC 4.84 10x6/uL (4.20-6.10); RDW 12.7 % (11.5-14.5); WBC 7.7 10x3/uL (4.8-10.8)
[2017-02-21 07:58] LABS: ANION GAP 12.2 mmol/L (8-16); CALCIUM 8.9 mg/dL (8.5-10.1); CARBON DIOXIDE 27.5 mmol/L (21.0-32.0); CREATININE - SERUM 1.1 mg/dL (0.6-1.3); POTASSIUM - SERUM 3.7 mmol/L (3.5-5.1)
--- NOTE | 2017-02-21 10:34 | NUR ---
HR 65 CHEST PAIN DENIED BP 120/79. FEMSTOP TO L/GROIN CDI PRESSURE AT 111 INSTRUCTED PATIENT TO KEEP HEAD FLAT ON PILLOW WITH LLE STRAIGHT
--- NOTE | 2017-02-21 11:33 | NUR ---
PRESSURE RELEASED TO 75 ON FEMSTOP WITH NO BLEEDING NO HEMATOMA NOTED. VSS WITH CHEST PAIN DENIED
--- NOTE | 2017-02-21 12:00 | NUR ---
1200 PRESSURE RELEASED FROM FEMSTOP NO BLEEDING AT SITE. VSS WITH CHEST PAIN DENIED WILL MONITOR
--- NOTE | 2017-02-21 14:21 | NUR ---
1230 PT DENIES ANY C/O. VSS. DRESSING TO RIGHT GROIN IS CDI WITH NO BLEEDING OR HEMATOMA NOTED. PT HAS SERGIO SANDWICH, HAS VOIDED 400 CC USING URINAL.
--- NOTE | 2017-02-21 14:22 | NUR ---
1330 DRESSING TO RIGHT GROIN IS CDI, NO BLEEDING OR HEMATOMA NOTED. PEDAL PULSES PALPABLE. DENIES NEEDS AT THIS TIME. CALL LIGHT IN REACH. 1415 IV DC'D WITH CATH INTACT. PT DENIES ANY C/O. VSS.
--- NOTE | 2017-02-21 14:23 | NUR ---
1435 REVIEWED DC INSTRUCTIONS WITH PT AND WHO VERBALIZE UNDERSTANDING. GROIN DRESSING REMAINS CDI WITH NO BLEEDING OR HEMATOMA AFTER PT AMBULATION. PT ESCORTED TO PRIVATE AUTO VIA WC BY STAFF WITH DRIVING HIM HOME.
--- NOTE | 2017-02-22 14:54 | OP ---
PATIENT NAME: LEAH GUSMAN MEDICAL RECORD: [id number] :42 LOCATION:D.CAT ADMISSION DATE: SURGEON: NORA NARANJO M.D. DATE OF OPERATION: 02/21/2017 PROCEDURES PERFORMED: PTCA and stent placement of the right coronary artery. INDICATION: A 76-year-old gentleman, who presents with angina. He returns today for completion of staged procedure. EQUIPMENT USED: A 6-Micronesian 3D right, BMW guidewire, 3.0 x 22 mm Resolute stent, 3.5 x 12 mm Euphora balloon. DESCRIPTION OF INTERVENTION: A long 6-Micronesian sheath was inserted in retrograde fashion in the left common femoral artery secondary to tortuosity. Next, 100 units per kilogram of heparin was infused. A 6-Micronesian 3D right guide was advanced and engaged in the right coronary. 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 Injections revealed an 80% in-stent restenosis. At this point, a BMW guidewire was placed in the distal vessel. A 3.0 x 22 mm Resolute stent was placed across the in-stent restenosis. The stent was deployed at 14 atmospheres. Injections revealed a residual 40% stenosis. At this point, it was postdilated with a 3.5 x 12 mm Euphora balloon at 14 atmospheres. Injections revealed 0% residual stenosis within the stented segment. At this point, the wire and guide were removed. IMPRESSION: Successful percutaneous transluminal coronary angioplasty and stent of the right coronary with 0% residual stenosis. TRANSINT:[id number] Voice Confirmation ID: [id number] DOCUMENT ID: [id number] NORA NARANJO M.D. at 1454 CC: [id number] DICTATION DATE: 02/21/17 1011 QUALITY ASSURANCE ASSOCIATE: 02/21/17 1117 [facility] CLI 02/21/17 [place] [id number]
== END 2017-02-21 14:35 | disposition home or self-care (01) ==
LOC: D.CATH 07:03
PROVIDERS: Internal Medicine Cardiovascular Disease
DX: I25.119 Atherosclerotic heart disease of native coronary artery with unspecified angina pectoris (principal)

== ENCOUNTER → 2017-11-29 13:17 | Outpatient (CLI) | payer MEDICARE, OTHER ==
[2017-02-21 07:23] VITALS: BMI 21.3
[~2017-11-29 13:17] MED LIST changes: +AMBIEN10 MG PO
== END | disposition home or self-care (01) ==
LOC: D.CT 13:17
DX: R09.89 Other specified symptoms and signs involving the circulatory and respiratory systems (principal); R51 Headache

== ENCOUNTER 2017-12-04 11:25 | Emergency (ER) | payer MEDICARE, OTHER ==
[2017-02-21 07:23] VITALS: BMI 21.3
[2017-12-04 11:58] LABS: BASOPHILS 0.3 % (0-2); EOSINOPHILS 1.3 % (0-7); HEMATOCRIT 44.2 % (42.0-54.0); HEMOGLOBIN 15.5 g/dL (13.5-17.5); IMMATURE GRANULOCYTES 0.1 % (0-5); LYMPHOCYTES 16.5 % (15-50); MCH 32.9 pg (26.0-34.0); MCHC 35.1 g/dL (31.0-37.0); MCV 93.8 fL (80.0-100.0); MEAN PLATELET VOLUME 10.1 fL (7.4-10.4); MONOCYTES 8.5 % (2-11); NEUTROPHILS 73.3 % (40-80); PLATELET COUNT 172 10x3/uL (130-400); RBC 4.71 10x6/uL (4.20-6.10); RDW 12.2 % (11.5-14.5)
[2017-12-04 12:18] LABS: ALBUMIN 3.6 g/dL (3.4-5.0); ALKALINE PHOSPHATASE 76 U/L (46-116); ALT (SGPT) 25 U/L (10-68); BILIRUBIN - TOTAL 0.52 mg/dL (0.2-1.3); CALC OSMOLALITY 276 mosm/kg (275-300); CALCIUM 9.5 mg/dL (8.5-10.1); CARBON DIOXIDE 31.5 mmol/L (21.0-32.0); CHLORIDE - SERUM 101 mmol/L (98-107); CREATININE - SERUM 1.3 mg/dL (0.6-1.3); GLUCOSE 95 mg/dL (74-106); POTASSIUM - SERUM 3.9 mmol/L (3.5-5.1); PROTEIN - SERUM 6.7 g/dL (6.4-8.2); SODIUM 136 mmol/L (136-145); UREA NITROGEN 26 mg/dL (7-18); eGFR NON AFRICAN AMERICAN 57 mL/min (90-120)
[2017-12-04 12:29] LABS: CHOL - HDL RATIO 2.2 ratio (2.3-4.9); CHOLESTEROL, TOTAL 144 mg/dL (0-200); CKMB 1.5 U/L (0.0-3.6); CREATINE KINASE 113 UL (21-232); HDL CHOLESTEROL 65 mg/dL (32-96); LDL CHOLESTEROL 66 mg/dL (0-100); TRIGLYCERIDE 67 mg/dL (30-200)
[2017-12-04 12:33] LABS: TROPONIN-I < 0.017 ng/mL (0.000-0.060)
== END 2017-12-04 16:03 | disposition home or self-care (01) ==
LOC: D.ER 11:25
PROVIDERS: Emergency Medicine
DX: R07.9 Chest pain, unspecified (principal); R42 Dizziness and giddiness; Z86.79 Personal history of other diseases of the circulatory system

== ENCOUNTER 2018-06-19 08:14 | Outpatient (CLI) | payer MEDICARE, OTHER ==
[~2018-06-19] VITALS: Ht 172.7 cm; Wt 63.6 kg
[2018-06-19] VITALS (7 sets, daily range): BP systolic 112–153; BP diastolic 73–92; Ht 172.7 cm; Wt 63.6 kg
[2018-06-19] MEDS ORDERED: PRINIVIL10 MG PO (08:23)
[2018-06-19 08:37] LABS: BASOPHILS 0.2 % (0-2); EOSINOPHILS 0.8 % (0-7); HEMATOCRIT 44.5 % (42.0-54.0); HEMOGLOBIN 16.1 g/dL (13.5-17.5); IMMATURE GRANULOCYTES 0.3 % (0-5); LYMPHOCYTES 9.9 % (15-50); MCH 32.7 pg (26.0-34.0); MCHC 36.2 g/dL (31.0-37.0); MCV 90.3 fL (80.0-100.0); MEAN PLATELET VOLUME 9.9 fL (7.4-10.4); MONOCYTES 8.3 % (2-11); NEUTROPHILS 80.5 % (40-80); PLATELET COUNT 179 10x3/uL (130-400); RBC 4.93 10x6/uL (4.20-6.10); RDW 12.7 % (11.5-14.5); WBC 10.8 10x3/uL (4.8-10.8)
[2018-06-19 08:53] LABS: ALBUMIN 3.5 g/dL (3.4-5.0); ALKALINE PHOSPHATASE 97 U/L (46-116); ALT (SGPT) 23 U/L (10-68); BILIRUBIN - TOTAL 0.79 mg/dL (0.2-1.3); CALC OSMOLALITY 277 mosm/kg (275-300); CALCIUM 9.2 mg/dL (8.5-10.1); CARBON DIOXIDE 27.5 mmol/L (21.0-32.0); CHLORIDE - SERUM 101 mmol/L (98-107); CREATININE - SERUM 1.1 mg/dL (0.6-1.3); GLUCOSE 117 mg/dL (74-106); SODIUM 136 mmol/L (136-145); UREA NITROGEN 26 mg/dL (7-18); eGFR NON AFRICAN AMERICAN 69 mL/min (90-120)
[2018-06-19 09:02] LABS: APTT 29.6 SECONDS (22.8-39.4)
[2018-06-19 09:03] LABS: D-DIMER-QUANTITATIVE 2.07 ug/mLFEU (0.20-0.54); INR 0.92 (0.85-1.17)
[2018-06-19 09:18] LABS: CKMB 1.3 U/L (0.0-3.6); CREATINE KINASE 67 UL (21-232); PRO BNP 291 pg/mL (0-450); TROPONIN-I 0.027 ng/mL (0.000-0.060)
[2018-06-19 13:53] LABS: CKMB 1.1 U/L (0.0-3.6); CREATINE KINASE 65 UL (21-232); TROPONIN-I 0.025 ng/mL (0.000-0.060)
[2018-06-19] MEDS ORDERED: CO Q-10100 MG PO (15:00)
[2018-06-19] MEDS ORDERED: ZANTAC150 MG PO (17:40)
== END 2018-06-19 18:35 | disposition home or self-care (01) ==
LOC: OBSVTIME → D.ER 08:14 → D.EDHOLD 13:06 → D.ER 13:06 → OBSVTIME 13:07 → EDSTATUS 13:29 → D.M2 13:34 → D.EDHOLD 13:34 → D.ER 14:50 → D.M2 18:35 → D.ER 18:35 → D.M2 18:35
PROVIDERS: Family Medicine
DX: R07.89 Other chest pain (principal); K21.9 Gastro-esophageal reflux disease without esophagitis; I25.10 Atherosclerotic heart disease of native coronary artery without angina pectoris; Z95.5 Presence of coronary angioplasty implant and graft; I10 Essential (primary) hypertension; Z87.891 Personal history of nicotine dependence

== ENCOUNTER 2018-12-10 21:07 | Emergency (ER) | payer MEDICARE, OTHER ==
[~2018-12-10] VITALS: Ht 172.7 cm; Wt 64.5 kg
[~2018-12-10 21:07] MED LIST changes: +CO Q-10100 MG PO; +PRINIVIL10 MG PO; +ZANTAC150 MG PO
[2018-12-10 21:28] VITALS: Ht 172.7 cm; Wt 64.5 kg
[2018-12-10 23:18] LABS: BASOPHILS 0.4 % (0-2); EOSINOPHILS 4.4 % (0-7); IMMATURE GRANULOCYTES 0.1 % (0-5); LYMPHOCYTES 22.3 % (15-50); MCH 31.6 pg (26.0-34.0); MCHC 34.9 g/dL (31.0-37.0); MCV 90.7 fL (80.0-100.0); MEAN PLATELET VOLUME 9.9 fL (7.4-10.4); MONOCYTES 11.3 % (2-11); NEUTROPHILS 61.5 % (40-80); PLATELET COUNT 158 10x3/uL (130-400); RBC 4.74 10x6/uL (4.20-6.10); RDW 12.7 % (11.5-14.5); WBC 7.4 10x3/uL (4.8-10.8)
[2018-12-10 23:31] LABS: ALBUMIN 3.3 g/dL (3.4-5.0); ALKALINE PHOSPHATASE 87 U/L (46-116); ALT (SGPT) 30 U/L (10-68); BILIRUBIN - TOTAL 0.69 mg/dL (0.2-1.3); CALCIUM 9.2 mg/dL (8.5-10.1); CREATININE - SERUM 1.1 mg/dL (0.6-1.3); GLUCOSE 96 mg/dL (74-106); PROTEIN - SERUM 6.9 g/dL (6.4-8.2); UREA NITROGEN 20 mg/dL (7-18); eGFR NON AFRICAN AMERICAN 69 mL/min (90-120)
[2018-12-10 23:40] LABS: CARBON DIOXIDE 28.7 mmol/L (21.0-32.0); LIPASE 112 U/L (73-393); PRO BNP 689 pg/mL (0-450); THYROID STIMULATING HORMONE 2.69 uIU/mL (0.36-3.74); TROPONIN-I < 0.017 ng/mL (0.000-0.060)
[2018-12-10 23:48] LABS: CALC OSMOLALITY 272 mosm/kg (275-300); POTASSIUM - SERUM 3.7 mmol/L (3.5-5.1); SODIUM 135 mmol/L (136-145)
[2018-12-10 23:49] LABS: CHLORIDE - SERUM 101 mmol/L (98-107)
[2018-12-11] MEDS ORDERED: CATAPRES0.1 MG PO (00:05)
[2018-12-11 00:30] VITALS: BP 151/87
== END 2018-12-11 00:30 | disposition home or self-care (01) ==
LOC: D.ER 21:07
PROVIDERS: Family Medicine
DX: I10 Essential (primary) hypertension (principal)

== ENCOUNTER → 2019-02-10 07:30 | Outpatient (CLI) | payer MEDICARE, OTHER ==
[2018-12-10 21:28] VITALS: BMI 21.6
[~2019-02-10 07:30] MED LIST changes: +CATAPRES0.1 MG PO
== END | disposition home or self-care (01) ==
LOC: D.CT 07:30
PROVIDERS: ATTEND Internal Medicine Cardiovascular Disease
DX: I71.2 Thoracic aortic aneurysm, without rupture (principal); I73.9 Peripheral vascular disease, unspecified

== ENCOUNTER → 2019-02-26 09:29 | Outpatient (CLI) | payer MEDICARE, OTHER ==
[2018-12-10 21:28] VITALS: BMI 21.6
== END | disposition home or self-care (01) ==
LOC: D.US 09:29
PROVIDERS: ATTEND Internal Medicine Cardiovascular Disease
DX: E04.1 Nontoxic single thyroid nodule (principal)

== ENCOUNTER 2019-03-09 07:37 | Outpatient (CLI) | payer MEDICARE, OTHER ==
--- NOTE | ~2019-03-09 | HEMODYNAMI ---
PATIENT:LEAH GUSMAN MEDICAL RECORD: [id number] : 42 LOCATION:[facility] ADMISSION DATE: 03/09/19 Generatedon:03/09/201910:57 Patient name: LEAH GUSMAN Patient #: [id number] SSN: : 1940 Date of study: 03/09/2019 Page: Of Hemodynamic Procedure Report Patient Data Patient Demographics Procedure consent was obtained First Name: LEAH Gender: Male Last Name: NASEEM : 1940 [facility] Initial: THOMAS Age: 78 year(s) Patient #: [id number] Race: Unknown Additional ID: [id number] Contact details [address]: [address] [place] [address] State: [place] City: [place] Zip code: [address] Past Medical History Allergies: No known allergies Admission Admission Data Admission Date: 03/09/2019 Admission Time: 7:37 Procedure Procedure Types Cath Procedure Peripheral Cath Diagnostic Procedure Cover Operator Peripheral Procedures Abd/Extremity Renal Bilat Renal Arteriogram Venography Procedure Description Procedure Date Procedure Date: 03/09/2019 Procedure Start Time: 10:05 Procedure Staff Name Function Taj Menchaca MD Performing Physician Nneka Nichols RT Clothes Presser Sole Watts RN Nurse Luther Quezada RT Scrub Procedure Data Cath Procedure Fluoroscopy Diagnostic fluoroscopy Total fluoroscopy Time: 6.8 time: 6.8 min min Diagnostic fluoroscopy Total fluoroscopy dose: 310 dose: 310 mGy mGy Contrast Material Contrast Material Type Amount (ml) Isovue 300 95 Entry Location Entry Primary Successful Side Size Upsize Upsize Entry Closure Succes sful Closure Location (Fr) 1 (Fr) 2 (Fr) Remarks Device Remarks Femoral Exoseal artery Diagnostic catheters Device Type Used For End Catheter Placement Angiodynamics SOS OMNI 2 NON B 5FR 65CM catheter ([id number]) Procedure Medications Medication Administration Route Dosage Heparin Flush Bag added to field 3 bags (1000units/500ml NS) Lidocaine 1% added to field 20 Versed I.V. 2 mg Fentanyl I.V. 100 mcg Heparin Bolus I.V. 4000 units Versed I.V. 1 mg Fentanyl I.V. 50 mcg Versed I.V. 1 mg Fentanyl I.V. 50 mcg Hemodynamics Rest Heart Rate: 77 (bpm) Pressure Samples Time Site Value (mmHg) Purpose Heart Use Rate(bpm) 10:39 AO 123/60(86) Snapshot 65 10:39 AO 120/58(84) Snapshot 65 10:43 RREN 95/55(73) Snapshot 66 10:43 RREN 86/50(66) Snapshot 65 10:43 RREN 90/54(70) Snapshot 65 Snapshots Pre Cath Intra NCS Post Cath Vital Signs Time Heart Resp SPO2 etCO2 NIBP (mmHg) Rhythm Pain Sedation Rate (ipm) (%) (mmHg) Status Level (bpm) 9:46:24 71 16 98 25.5 182/103(129) NSR 0 (11) 9(A) , No pain 9:49:15 66 15 100 34.6 175/102(145) NSR 0 (11) 9(A) , No pain 9:53:35 64 15 100 36.1 153/88(122) NSR 0 (11) 9(A) , No pain 9:57:51 65 20 100 27.1 142/89(109) NSR 0 (11) 9(A) , No pain 10:02:01 66 16 100 39.1 157/98(131) NSR 0 (11) 9(A) , No pain 10:06:21 67 13 100 36.1 141/89(112) NSR 0 (11) 9(A) , No pain 10:10:33 71 14 99 35.4 140/91(117) NSR 0 (11) 8(A) , No pain 10:14:49 62 10 98 30.1 137/76(96) NSR 0 (11) 8(A) , No pain 10:19:01 75 17 98 36.1 121/88(108) NSR 0 (11) 8(A) , No pain 10:23:09 70 8 99 38.3 122/76(97) NSR 0 (11) 8(A) , No pain 10:27:19 63 10 98 0 117/72(85) NSR 0 (11) 8(A) , No pain 10:31:29 71 17 99 39.2 109/68(85) NSR 0 (11) 8(A) , No pain 10:35:33 67 8 98 34.6 117/74(94) NSR 0 (11) 8(A) , No pain 10:39:40 64 8 99 42.1 122/71(95) NSR 0 (11) 8(A) , No pain 10:43:50 66 9 99 40.6 111/71(86) NSR 0 (11) 8(A) , No pain 10:47:54 68 17 98 40.6 110/80(94) NSR 0 (11) 8(A) , No pain 10:52:47 71 16 98 38.4 118/76(95) NSR 0 (11) 8(A) , No pain 10:56:18 67 18 99 44.4 115/72(89) NSR 0 (11) 8(A) , No pain Medications Time Medication Route Dose Verified Delivered Reason Notes Effe ctiveness by by 9:28:17 Heparin Flush added 3 Taj Vang used for Bag to bags Bernarda Menchaca MD procedure (1000units/500ml field HERNANDEZ NS) 9:28:30 Lidocaine 1% added 20ml Taj Vang for local to vial Bernarda Menchaca MD anesthetic field 10:09:30 Versed I.V. 2 mg Taj Whipple for Mac Menchaca RN sedation 10:09:49 Fentanyl I.V. 100 Taj Whipple for mcg Mac Menchaca RN sedation 10:23:48 Heparin Bolus I.V. 4000 Taj Whipple Per units Mac Menchaca RN physician 10:26:18 Versed I.V. 1 mg Taj Whipple for Mac Menchaca RN sedation 10:26:27 Fentanyl I.V. 50 Taj Whipple for mcg Mac Menchaca RN sedation 10:47:27 Versed I.V. 1 mg Taj Wihpple for aMc Menchaca RN sedation 10:47:35 Fentanyl I.V. 50 Taj Sole for mcg Mac Menchaca RN sedation Procedure Log Time Note 8:47:49 Use device set IR Diagnostic 9:23:15 Tegaderm 4 x 4 (1626W) opened to sterile field. 9:23:18 Sterile Angiographic Pack opened to sterile field. 9:23:19 Bag Decanter (2002) opened to sterile field. 9:23:20 ACIST Manifold (42145) opened to sterile field. 9:23:21 ACIST Hand Control (24830) opened to sterile field. 9:23:21 ACIST Syringe (07012) opened to sterile field. 9:23:22 DOC .035 wire (D06722) opened to sterile field. 9:23:23 Micropuncture VSI 4FR kit opened to sterile field. 9:23:24 SHEATH 5FR [place] (HWI715) opened to sterile field. 9:23:25 TUBING Contrast Injection High Pressure ([id number]) opened to sterile field. 9:23:26 Angiodynamics Omniflush 5Fr 65cm ([id number]) opened to sterile field. 9:23:31 - 9:23:34 Time tracking: Regular hours (M-F 7:00 - 5:00) 9:23:43 Plan of Care:Hemodynamics will remain stable., Cardiac rhythm will remain stable., Comfort level will be maintained., Respiratory function will remain adequate., Patient/ family verbilizes understanding of procedure., Procedure tolerated without complication., Recovers from procedure without complications.. 9:23:50 Patient received from Outpatients to IR Alert and oriented. Tansferred to table in Supine position. 9:23:53 Correct patient and procedure confirmed by team. 9:23:55 Signed procedure consent form obtained from patient. 9:24:02 H&P Date Dictated: 03/09/2019 Within 30 days and on chart.. 9:24:10 Pre-procedure instructions explained to patient. 9:24:11 Pre-op teaching completed and patient verbalized understanding. 9:24:14 Family in waiting room. 9:24:16 Patient NPO since Midnight. 9:24:23 Patient allergic to No known allergies 9:24:30 Is the patient allergic to Iodine/contrast media? No. 9:24:34 Is patient on blood thinner?No 9:24:38 - 9:24:41 Patient diabetic? No. 9:24:45 - 9::45 ----Pre-sedation anethsthesia assessment.---- 9::49 Previous problem with sedation/anesthesia? No ? 9:24:53 Snore? Yes 9:24:56 Sleep apnea? Yes 9::58 Deviated septum? Yes 9:25:01 Opens mouth fully? Yes 9:25:04 Sticks out tongue? Yes 9:25:11 Airway obstruction? No BUT HAS CAD 9:25:19 Dentures? Yes SECURED 9:25:30 IV patent on arrival in left forearm with D5/.45%NaCl at [facility]. 9::44 - 9:25:57 Pre procedure: right dorsailis pedis pulse Doppler 9:26:02 Pre procedure: right posterior tibial pulse Doppler 9:28:17 Heparin Flush Bag (1000units/500ml NS) 3 bags added to field was administered by Taj Menchaca MD; used for procedure; ::30 Lidocaine 1% 20ml vial added to field was administered by Taj Menchaca MD; for local anesthetic; 9:45:10 Vital chart was started 9:47:55 ECG and BP/O2 sat monitors applied to patient. 9:48:00 Baseline sample Acquired. 9:48:04 Full Disclosure recording started 9:48:08 - 10:04:26 - 10:04:32 Baseline sample Acquired. 10:04:37 Physician arrived 10:04:37 --------ALL STOP TIME OUT------ 10:04:38 Final Timeout: patient, procedure, and site verified with staff and physician. All members of the team are in agreement. 10:05:04 Procedure started. 10:05:08 Local anesthetic to right femoral artery with Lidocaine 1% by Taj Menchaca MD.INITIAL ACCESS ONLY 10:05:11 Arterial access obtained using ultrasound guidance. 10:09:30 Versed 2 mg I.V. was administered by Sole Watts RN; for sedation; 10:09:49 Fentanyl 100 mcg I.V. was administered by Sole Watts RN; for sedation; 10:22:47 A [employer] SOS OMNI 2 NON B 5FR 65CM catheter ([id number]) was advanced over the wire and used for . 10:23:48 Heparin Bolus 4000 units I.V. was administered by Sole Watts RN; Per physician; 10:26:18 Versed 1 mg I.V. was administered by Sole Watts RN; for sedation; 10:26:27 Fentanyl 50 mcg I.V. was administered by Sole Watts RN; for sedation ; 10:28:34 GLIDE CATHETER 5FR COBRA 65cm (CG502) opened to sterile field. 10:28:54 GLIDE WIRE ANGLE 180cm (PA5630) opened to sterile field. 10:28:55 TORQUE DEVICE PLASTIC .038 ( TD01) opened to sterile field. 10:35:41 Cordis 5Fr [place] Destination sheath opened to sterile field. 10:39:00 Zero performed for pressure channel P1 10:39:09 Zero performed for pressure channel P1 10:41:53 Zero performed for pressure channel P1 10:47:27 Versed 1 mg I.V. was administered by Sole Watts RN; for sedation; 10:47:35 Fentanyl 50 mcg I.V. was administered by Sole Watts RN; for sedation ; 10:48:24 EXOSEAL 5Fr (EX500) opened to sterile field. 10:50:24 Sheath removed intact; hemostasis achieved with Exoseal to the Femoral artery. 10:50:24 A sheath was inserted into the Femoral artery 10:50:34 Procedure ended.(Physican Out) 10:50:40 Fluoroscopy time 06.80 minutes. 10:50:45 Fluoroscopy dose: 310 mGy 10:50:45 Flurop Dose total: 310 10:53:39 Contrast amount:Isovue 300 95ml. 10:53:52 Procedure and supply charges have been captured, reviewed, submitted an d are correct. 10:56:22 Report given to Outpatients. 10:57:20 Vital chart was stopped Device Usage Item Name Manufacture Quantity Catalog Hospital Part Current Minim al Lot# / Number Charge Number Stock Stock Serial# Code Tegaderm 4 x 3M 1 [id number] [id number] 5 4 (1626W) Sterile Cardinal 1 [id number] 336752 925022 5 Angiographic Health Pack Bag Decanter Microtek 1 277409 54480 851993 5 () Medical Inc. ACIST Acist Medical 1 08467 190165 211528 480555 5 Manifold Systems Inc (35859) ACIST Hand Acist Medical 1 97364 703418 629463 257219 5 Control Systems Inc (20006) ACIST Syringe Acist Medical 1 54258 339352 850707 167878 20 (18898) Systems Inc DOC .035 wire [employer] 1 M00348 254898 985525 5 (U48258) Micropuncture VSI VASCULAR 1 7266V 335149 064797 5 VSI 4FR kit SOLUTIONS SHEATH 5FR Terumo 1 ZBM969 610104 986408 202018 5 [place] (QTI420) TUBING [facility] Medical 1 [id number] 374761 612759 457086 5 Contrast Injection High Pressure (TLB717Z) Angiodynamics Angiodynamics 1 59245672 137776 799062 941972 5 Omniflush 5Fr 65cm (40710502) Angiodynamics Angiodynamics 1 72729065 548040 34807 155173 5 SOS OMNI 2 NON B 5FR 65CM catheter (38627742) GLIDE Terumo 1 CG502 443005 722936 5 CATHETER 5FR COBRA 65cm (CG502) GLIDE WIRE Terumo 1 BK3261 012116 115810 163245 5 ANGLE 180cm (SU9529) TORQUE DEVICE [place] 1 TD01 969651 100564 505993 5 PLASTIC .038 Scientific ( TD01) Cordis 5Fr Cardinal 1 31-04084 600028 40833 805744 5 [facility] Destination sheath EXOSEAL 5Fr Cardinal 1 EX500 761285 281607 426678 10 [id number] (EX500) Health Signature Audit [place] Stage Time Signature Unsigned Intra-Procedure 03/09/2019 Nneka Nichols 10:57:15 AM RT(R) [facility] [address] [place] [address]
[2019-03-09 08:03] LABS: BASOPHILS 0.4 % (0-2); EOSINOPHILS 2.5 % (0-7); HEMATOCRIT 47.2 % (42.0-54.0); HEMOGLOBIN 16.3 g/dL (13.5-17.5); IMMATURE GRANULOCYTES 0.1 % (0-5); LYMPHOCYTES 22.6 % (15-50); MCH 31.5 pg (26.0-34.0); MCHC 34.5 g/dL (31.0-37.0); MCV 91.3 fL (80.0-100.0); MEAN PLATELET VOLUME 10.3 fL (7.4-10.4); MONOCYTES 9.9 % (2-11); NEUTROPHILS 64.5 % (40-80); PLATELET COUNT 151 10x3/uL (130-400); RBC 5.17 10x6/uL (4.20-6.10); WBC 8.2 10x3/uL (4.8-10.8)
[2019-03-09 08:09] LABS: ANION GAP 9.1 mmol/L (8-16); CARBON DIOXIDE 32.8 mmol/L (21.0-32.0); CREATININE - SERUM 1.4 mg/dL (0.6-1.3); POTASSIUM - SERUM 3.9 mmol/L (3.5-5.1)
[2019-03-09 08:10] LABS: APTT 31.6 SECONDS (22.8-39.4); INR 1.03 (0.85-1.17)
[2019-03-09] MEDS ORDERED: OMEPRAZOLE20 M1 PO (08:56)
[2019-03-09 09:02] VITALS: BP 125/73; BMI 121.9
== END 2019-03-09 14:20 ==
LOC: D.SP 07:37
PROVIDERS: General Practice
DX: I70.1 Atherosclerosis of renal artery (principal); Z01.812 Encounter for preprocedural laboratory examination

== ENCOUNTER → 2019-03-16 09:11 | Outpatient (CLI) | payer MEDICARE, OTHER ==
[2019-03-09 09:02] VITALS: BMI 121.9
[~2019-03-16 09:11] MED LIST changes: +OMEPRAZOLE20 M1 PO
== END | disposition home or self-care (01) ==
LOC: D.NM 09:11
PROVIDERS: ATTEND General Practice
DX: I70.1 Atherosclerosis of renal artery (principal)

== ENCOUNTER 2019-09-11 19:02 | Emergency (ER) | payer MEDICARE, OTHER ==
[~2019-09-11] VITALS: Ht 172.7 cm; Wt 64.5 kg
[2019-09-11 19:09] VITALS: Ht 172.7 cm; Wt 64.5 kg
[2019-09-11 19:44] LABS: BASOPHILS 0.3 % (0-2); EOSINOPHILS 1.2 % (0-7); HEMATOCRIT 43.3 % (42.0-54.0); IMMATURE GRANULOCYTES 0.2 % (0-5); LYMPHOCYTES 17.3 % (15-50); MCH 32.5 pg (26.0-34.0); MCHC 34.6 g/dL (31.0-37.0); MCV 93.9 fL (80.0-100.0); MEAN PLATELET VOLUME 10.9 fL (7.4-10.4); MONOCYTES 8.3 % (2-11); NEUTROPHILS 72.7 % (40-80); PLATELET COUNT 171 10x3/uL (130-400); RBC 4.61 10x6/uL (4.20-6.10); RDW 12.8 % (11.5-14.5); WBC 9.1 10x3/uL (4.8-10.8)
[2019-09-11 20:01] LABS: CALC OSMOLALITY 279 mosm/kg (275-300); CALCIUM 8.7 mg/dL (8.5-10.1); CARBON DIOXIDE 33.2 mmol/L (21.0-32.0); CHLORIDE - SERUM 101 mmol/L (98-107); CREATININE - SERUM 1.2 mg/dL (0.6-1.3); GLUCOSE 106 mg/dL (74-106); POTASSIUM - SERUM 3.6 mmol/L (3.5-5.1); SODIUM 139 mmol/L (136-145); UREA NITROGEN 19 mg/dL (7-18); eGFR NON AFRICAN AMERICAN 62 mL/min (90-120)
[2019-09-11 20:18] LABS: ALBUMIN 3.6 g/dL (3.4-5.0); ALKALINE PHOSPHATASE 111 U/L (46-116); ALT (SGPT) 24 U/L (10-68); BILIRUBIN - TOTAL 0.38 mg/dL (0.2-1.3); CKMB 0.7 U/L (0.0-3.6); CREATINE KINASE 58 UL (21-232); PROTEIN - SERUM 6.9 g/dL (6.4-8.2)
[2019-09-11 20:39] LABS: TROPONIN-I < 0.017 ng/mL (0.000-0.060)
[2019-09-11] MEDS ORDERED: KEPPRA500 MG PO (21:12)
[2019-09-11 21:25] VITALS: BP 145/82
== END 2019-09-11 21:25 | disposition home or self-care (01) ==
LOC: D.ER 19:02
PROVIDERS: Family Medicine
DX: I10 Essential (primary) hypertension (principal); R55 Syncope and collapse

== ENCOUNTER 2019-09-29 20:34 | Observation (INO) | payer MEDICARE, OTHER ==
[~2019-09-29] VITALS: Ht 152.4 cm; Wt 67.3 kg
--- NOTE | ~2019-09-29 | HEMODYNAMI ---
PATIENT:LEAH GUSMAN MEDICAL RECORD: [id number] : 42 LOCATION:[facility] D.2121 ADMISSION DATE: 09/29/19 Generatedon:10/13/201910:09 Patient name: LEAH GUSMAN Patient #: [id number] SSN: [id number] : 1940 Date of study: 09/30/2019 Page: Of Hemodynamic Procedure Report Patient Data Patient Demographics Procedure consent was obtained First Name: LEAH Gender: Male Last Name: NASEEM : 1940 Middle Initial: THOMAS Age: 79 year(s) Patient #: [id number] Race: SSN: [id number] Additional ID: [id number] Contact details Address: [address] [place] [address] State: [place] City: [place] Zip code: [address] Past Medical History Allergies: No known allergies Admission Admission Data Admission Date: 09/29/2019 Admission Time: 21:58 Arrival Date: 09/30/2019 Arrival Time: 0:00 Admit Source: Other Insurance Payor: Medicare Room #: D.2121 [facility] #: [id number] Height (in.): 60 BSA: 1.64 (m2) Height (cm.): 152.4 BMI: 28.96 (kg/m2) Weight (lbs.): 148.31 Weight (kg.): 67.27 Lab Results Lab Result Date: 09/30/2019 Lab Result Time: 0:00 Biochemistry Name Units Result Min Max BUN mg/dl 22 --(----)-* 7 18 Creatinine mg/dl 1.2 --(---*)-- 0.6 1.3 eGFR ml/min 61.57211 *-(----)-- 90 120 NONAFRICAN CBC Name Units Result Min Max Hematocrit % 42.2 --(*---)-- 42 54 Hemoglobin g/dl 14.3 --(*---)-- 13.5 17.5 Procedure Procedure Types Cath Procedure Diagnostic Procedure [facility] w/Coronaries FFR/IVUS FFR Initial Sedation Charges Moderate Sedation up to 15 minutes PCI Procedure Coronary Stent Coronary Stent Initial Procedure Description Procedure Date Procedure Date: 09/30/2019 Procedure Start Time: 15:52 Procedure End Time: 16:19 Procedure Staff Name Function Randell Marcelo RT Scrub Jaleesa Booker RN Nurse Rangel Ortiz MD Performing Physician Adilia Swann RT Scrub Claire Damon RT Monitor Nereyda Toussaint RN Glazier Helper Charlotte Kelsey RT Monitor Procedure Data Cath Procedure Fluoroscopy Diagnostic fluoroscopy Total fluoroscopy Time: 9.1 time: 9.1 min min Diagnostic fluoroscopy Total fluoroscopy dose: 783 dose: 783 mGy mGy Contrast Material Contrast Material Type Amount (ml) Isovue 300 136 Entry Location Entry Primary Successful Side Size Upsize Upsize Entry Closure Succes sful Closure Location (Fr) 1 (Fr) 2 (Fr) Remarks Device Remarks Femoral Right 5 Fr 6 Fr artery Short Estimated blood loss: 10 ml Diagnostic catheters Device Type Used For End Catheter Placement MULTIPACK Pigtail 5 Fr Procedure catheter MULTIPACK JL 4.0 5Fr Procedure catheter MULTIPACK 3DRC 5Fr Procedure catheter DIAGNOSTIC AR2 MOD 5 Fr Procedure catheter ([id number]) Procedure Complications No complications Procedure Medications Medication Administration Route Dosage Oxygen etCO2 Nasal cannula 2 l/min Lidocaine 2% added to field 20 Heparin Flush Bag added to field 2 bags (1000units/500ml NS) 0.9% NaCl I.V. 100 ml/hr Versed I.V. 2 mg Fentanyl I.V. 50 mcg Versed I.V. 1 mg Fentanyl I.V. 50 mcg Versed I.V. 1 mg Fentanyl I.V. 50 mcg Heparin Bolus I.V. 4000 units Integrilin (Bolus I.V. 6.2 ml 2mg/ml) Plavix P.O. 600 mg Hemodynamics Rest BSA: 1.64 (m2) HGB: 14.3 (g/dl) O2 Consumption: Estimated: 191.13 (ml/min) O2 Co nsumption indexed: Estimated:116.54 (ml/min/m) Heart Rate: 75 (bpm) Snapshots Pre Cath Intra NCS Post Cath Vital Signs Time Heart Resp SPO2 etCO2 NIBP (mmHg) Rhythm Pain Sedation Rate (ipm) (%) (mmHg) Status Level (bpm) 15:37:20 68 13 96 39.9 140/86(121) NSR 0 (11) 10(A) , No pain 15:41:31 64 18 98 40.6 112/72(104) NSR 0 (11) 10(A) , No pain 15:45:45 64 18 99 39.9 127/71(90) NSR 0 (11) 10(A) , No pain 15:50:04 62 17 99 44.4 131/81(110) NSR 0 (11) 10(A) , No pain 15:54:22 55 17 99 42.1 109/68(98) NSR 0 (11) 9(A) , No pain 15:58:36 67 17 98 44.4 122/69(88) NSR 0 (11) 9(A) , No pain 16:02:50 67 17 98 42.9 118/71(92) NSR 0 (11) 9(A) , No pain 16:07:06 69 17 98 43.7 115/73(93) NSR 0 (11) 9(A) , No pain 16:11:22 63 16 99 43.7 106/61(93) NSR 0 (11) 9(A) , No pain 16:15:33 72 17 98 45.2 90/60(81) NSR 0 (11) 10(A) , No pain 16:19:39 71 6 98 46 103/70(96) NSR 0 (11) 10(A) , No pain Medications Time Medication Route Dose Verified Delivered Reason Notes Effectiveness by by 15:36:46 Oxygen etCO2 2 Rangel Lazcano used for Nasal l/min Diana Booker RN procedure cannula 15:36:53 Lidocaine 2% added 20ml Rangel Multani for local to vial Diana Ortiz MD anesthetic field 15:36:59 Heparin Flush added 2 Rangel Multani used for Bag to bags Diana Ortiz MD procedure (1000units/500ml field NS) 15:37:08 0.9% NaCl I.V. 100 Rangelmarin Lazcano Per physician ml/hr Diana Booker RN 15:50:47 Versed I.V. 2 mg Rangel Lazcano for sedation Diana Booker RN 15:50:53 Fentanyl I.V. 50 Rangel Buffie for sedation mcg Diana Booker RN 15:53:01 Fentanyl I.V. 50 Rangel Smithie for sedation mcg Diana Booker RN 15:53:58 Versed I.V. 1 mg Rangel Smithie for sedation Diana Booker RN 15:58:23 Versed I.V. 1 mg Rangel Smithie for sedation Diana Booker RN 15:58:27 Fentanyl I.V. 50 Rangel Smithie for sedation mcg Diana Booker RN 16:07:09 Heparin Bolus I.V. 4000 Rangel Lazcano for units Diana Booker RN anticoagulation 16:09:58 Integrilin I.V. 6.2 Rangel Smithie for waste d (Bolus 2mg/ml) ml Diana Booker RN antiplatelet 3.8 therapy ml. of vial 16:15:17 Plavix P.O. 600 Rangel Lazcano for mg Diana Booker RN antiplatelet therapy Procedure Log Time Note 15:19:53 Admit Source: Other 15:20:01 Procedure Status Elective Heart Cath (OP). 15:20:06 Nereyda Toussaint RN sent for patient. Start room use. 15:21:05 Lab Result : Hemoglobin 14.3 g/dl 15:21:05 Lab Result : Hematocrit 42.2 % 15:21:05 Lab Result : eGFR NONAFRICAN 61.16551 ml/min 15:21:05 Lab Result : BUN 22 mg/dl 15:21:05 Lab Result : Creatinine 1.2 mg/dl 15:21:11 Lab results completed and on chart. 15:21:30 Stress Test: no; N/A ? 15:26:52 Informed consent obtained and on chart 15:28:53 Arrival Date: 09/30/2019 12:00:00 AM 15:28:59 Insurance Payor : Medicare 15:29:17 Patient Height : 60 inches 15:29:21 Patient Weight : 148.31 lbs 15:29:41 Time tracking: Regular hours (M-F 7:00 - 5:00) 15:29:46 Plan of Care:Hemodynamics will remain stable., Cardiac rhythm will remain stable., Comfort level will be maintained., Respiratory function will remain adequate., Patient/ family verbilizes understanding of procedure., Procedure tolerated without complication., Recovers from procedure without complications.. 15:29:55 Patient received from Med II to [facility] 1 Alert and oriented. Tansferred to table in Supine position. 15:30:08 Correct patient and procedure confirmed by team. 15:30:08 Warm blankets applied, and agatha hugger turned on for patient comfort. 15:30:11 ECG and BP/O2 sat monitors applied to patient. 15:30:27 H&P Date Dictated: 09/30/2019 Within 30 days and on chart.. 15:30:29 Pre-procedure instructions explained to patient. 15:30:30 Pre-op teaching completed and patient verbalized understanding. 15:30:33 Family in patients room. 15:30:36 Patient NPO since Midnight. 15:30:46 Patient allergic to No known allergies 15:30:49 Is the patient allergic to Iodine/contrast media? No. 15:30:52 Was the patient premedicated? N/A 15:30:54 Is patient on blood thinner?No 15:31:17 Patient diabetic? No. 15:31:35 Snore? Yes 15:31:37 Sleep apnea? Yes 15:31:39 Deviated septum? No 15:31:41 Opens mouth fully? Yes 15:31:42 Sticks out tongue? Yes 15:31:47 Airway obstruction? No ? 15:31:59 Dentures? Yes in tight 15:32:08 Pre procedure: right dorsailis pedis pulse Doppler 15:32:31 Modified Edwar's test Ulnar > 7 seconds. 15:32:37 Patient pain scale 0/10 ?. 15:33:28 IV patent on arrival in right antecubital with 0.9% NaCl at O. 15:33:39 Risk of Mortality: 0.3 15:33:43 Risk of blood transfusion: 1.3 15:33:46 Risk of CONNOR: 2.7 15:33:52 Right groin area was prepped with chlora-prep and draped in sterile fashion 15:33:54 Alarms reviewed by R. N. 15:33:55 Sharps counted by scrub and verified by R.N. 15:36:13 Vital chart was started 15:36:46 Oxygen 2 l/min etCO2 Nasal cannula was administered by Jaleesa Booker RN; used for procedure; Verbal order read back and verified. 15:36:53 Lidocaine 2% 20ml vial added to field was administered by Rangel Ortiz MD; for local anesthetic; Verbal order read back and verified. 15:36:59 Heparin Flush Bag (1000units/500ml NS) 2 bags added to field was administered by Rangel Ortiz MD; used for procedure; Verbal order read back and verified. 15:37:08 0.9% NaCl 100 ml/hr I.V. was administered by Jaleesa Booker RN; Per physician; Verbal order read back and verified. 15:42:32 Baseline sample Acquired. 15:43:15 Rhythm: sinus bradycardia 15:43:17 Full Disclosure recording started 15:49:05 --------ALL STOP TIME OUT------ 15:49:07 Final Timeout: patient, procedure, and site verified with staff and physician. All members of the team are in agreement. 15:49:11 Right groin site verified by team. 15:49:15 Fire Safety Assessment: A--An alcohol-based skin anteseptic being used preoperatively., C--Open oxygen or nitrous oxide is being used., D--An ESU, laser, or fiber-optic light is being used. 15:49:20 Physical assessment completed. ASA score P 2 - A patient with mild systemic disease as per Rangel Ortiz MD. 15:49:23 2) 60-89 Mildly reduced kidney function, and other findings (as for stage 1) point to kidney disease. 15:49:29 Maximum allowable contrast dose (3.7 X eGFR X 0.75)174 ml. 15:49:34 Sedation plan: IV Moderate Sedation Medication:Versed, Fentanyl 15:50:47 Versed 2 mg I.V. was administered by Jaleesa Booker RN; for sedation; Verbal order read back and verified. 15:50:53 Fentanyl 50 mcg I.V. was administered by Jaleesa Booker RN; for sedation; Verbal order read back and verified. 15:51:40 Use device set Femoral Dx 15:51:42 ACIST Syringe (21981) opened to sterile field. 15:51:43 Bag Decanter () opened to sterile field. 15:51:44 Medline Cath Pack ([id number]) opened to sterile field. 15:51:45 ACIST Hand Control (77967) opened to sterile field. 15:51:46 ACIST Manifold (71386) opened to sterile field. 15:51:47 Tegaderm 4 x 4 (1626W) opened to sterile field. 15:51:49 DIAGNOSTIC Multipack 5Fr catheter set (OD9965) opened to sterile field. 15:51:51 SHEATH 5FR [place] (PLB904) opened to sterile field. 15:51:52 EMERALD Guide Wire (233-824) opened to sterile field. 15:52:00 Procedure started. 15:52:06 Local anesthetic to right femoral artery with Lidocaine 2% by Rangel Ortiz MD.INITIAL ACCESS ONLY 15:52:19 A 5 Fr sheath was inserted into the Right Femoral artery 15:52:53 A MULTIPACK Pigtail 5 Fr catheter was advanced over the wire and used for Procedure. 15:52:57 LV gram done using CROWELL 15:53:01 Fentanyl 50 mcg I.V. was administered by Jaleesa Booker RN; for sedation; Verbal order read back and verified. 15:53:02 Injector settings: Ml/sec: 10, Volume: 20, 15:53:38 EF : 35 % 15:53:40 Catheter removed. 15:53:51 A MULTIPACK JL 4.0 5Fr catheter was advanced over the wire and used for Procedure. 15:53:58 Versed 1 mg I.V. was administered by Jaleesa Booker RN; for sedation; Verbal order read back and verified. 15:55:17 LCA angiography performed. 15:55:37 Catheter removed. 15:55:45 A MULTIPACK 3DRC 5Fr catheter was advanced over the wire and used for Procedure. 15:57:18 Catheter removed. 15:57:33 unable to engage rca 15:57:50 A DIAGNOSTIC AR2 MOD 5 Fr catheter ([id number]) was advanced over the wire and used for Procedure. 15:58:23 Versed 1 mg I.V. was administered by Jaleesa Booker RN; for sedation; Verbal order read back and verified. 15:58:27 Fentanyl 50 mcg I.V. was administered by Jaleesa Booker RN; for sedation; Verbal order read back and verified. 15:58:41 Catheter removed. 15:58:51 unable to engage rca 15:59:40 SHEATH 6FR [place] (VZJ455) opened to sterile field. 15:59:50 Sheath upsized to a 6 Fr Short. 16:00:01 GUIDE 6FR AL 2.0 catheter ([id number]) opened to sterile field. 16:00:14 6 Fr AL 2 guide catheter was inserted over the wire 16:02:25 RCA angiography performed- OCCLUDED 16:02:32 Guide catheter removed. 16:02:54 6 Fr XBLAD 4 guide catheter was inserted over the wire 16:03:59 [place] Verrata Plus pressure wire (36435P) opened to sterile field. 16:04:45 FFR/IFR wire advanced. 16:04:50 Wire advanced across lesion. 16:06:11 mLAD lesion measured at .78 with IFR 16:07:09 Heparin Bolus 4000 units I.V. was administered by Jaleesa Booker RN; for anticoagulation; Verbal order read back and verified. 16:07:11 Pre PCI Site: [place] mLAD has 80% stenosis. 16:09:58 Integrilin (Bolus 2mg/ml) 6.2 ml I.V. was administered by Jaleesa Booker RN; for antiplatelet therapy; wasted 3.8 ml. of vial Verbal order read back and verified. 16:10:03 Inflate balloon Inflation number: 1 A NC EUPHORA 3.5 x 12 balloon ([id number]) was prepped and advanced across the Mid LAD , then inflated to 19 SELVIN for 0:00 (min:sec) . 16:10:13 Balloon removed over the wire. 16:11:34 Place stent Inflation Number: 2 A ABIOLA RX 2.5 x 22 stent ([id number]) was prepped and advanced across the Mid LAD . The stent was deployed at 13 SELVIN for 0:00 (min:sec) . 16:11:50 Inflation number: 3 The stent balloon was then re-inflated across the Mid LAD to 17 SELIVN for 0:00 (min:sec) . 16:12:35 Stent catheter was removed intact over wire. 16:12:40 Wire removed. 16:12:41 Guide catheter removed. 16:13:00 EXOSEAL 6Fr (EX600) opened to sterile field. 16:13:08 Procedure ended.(Physican Out) 16:13:28 Fluoroscopy time 09.10 minutes. 16:13:34 Fluoroscopy dose: 783 mGy 16:13:34 Flurop Dose total: 783 16:13:42 Dose Area Product 18880 mGy/cm. 16:13:47 Contrast amount:Isovue 300 136ml. 16:13:49 Maximum allowable dose exceeded? No. 16:13:51 Sharps counted by scrub and verified by R.N. 16:14:05 Insertion/operative site no bleeding no hematoma. 16:14:12 Post-op/insertion site Right Femoral artery dressed using a 4 x 4 and Tegaderm. 16:14:23 Post right femoral artery:stable, unchanged, clean and dry 16:14:35 Post procedure: right dorsailis pedis pulse Doppler. 16:14:43 Post-procedure physical assessment completed. ASA score P 2 - A patient with mild systemic disease as per Rangel Ortiz MD. 16:14:47 Post procedure rhythm: unchanged. 16:14:51 Estimated blood loss: 10 ml 16:14:53 Post procedure instruction explained to patient.Patient verbalizes understanding. 16:14:54 Patient needs reinforcement of post procedure teaching. 16:15:00 ACT drawn and resulted at 278 seconds. (normal therapeutic range 180-240 seconds). 16:15:17 Plavix 600 mg P.O. was administered by Jaleesa Booker RN; for antiplatelet therapy; Verbal order read back and verified. 16:15:51 Procedure type changed to Cath procedure, Diagnostic procedure, LHC, C w/Coronaries, FFR/IVUS, FFR Initial, Sedation Charges, Moderate Sedation up to 15 minutes, PCI procedure, Coronary Stent, Coronary Stent Initial 16:19:09 Procedure and supply charges have been captured, reviewed, submitted and are correct. 16:19:15 Procedure Complication : No complications 16:19:18 Vital chart was stopped 16:19:23 [facility] Findings: MVD- PCI performed (see procedure note) 16:19:27 Operative report dictated upon procedure completion. 16:19:29 See physician's report for complete and final results. 16:19:31 Report given to [facility]. 16:19:35 Patient transfered to [facility] with Bed. 16:19:39 Procedure ended. 16:19:39 Full Disclosure recording stopped 16:19:47 ACC-PCI Only Patient was given prescriptions, or instructed by Rangel Ortiz MD to start/continue the following medications upon discharge: Plavix 16:20:05 End room use (Document Last) 16:20:49 FEMSTOP Gold ([id number]) opened to sterile field. 16:21:12 Post Procedure Pulses reassessed and unchanged 16:21:23 Femstop placed over the right femoral artery at ? mmHg. Hemostasis achieved. 16:22:39 Femstop placed over the right femoral artery at 115 mmHg. Hemostasis achieved. Intervention Summary Intervention Notes Time ActionType Lesion and Equipment Used Action# Pressure Duration Attributes 16:10:03 Inflate Mid LAD NC EUPHORA 3.5 1 19 00:00 balloon x 12 balloon ([id number]) 16:11:34 Place stent Mid LAD ABIOLA RX 2.5 x 2 13 00:00 22 stent ([id number]) 16:11:50 Reinflate Mid LAD ABIOLA RX 2.5 x 3 17 00:00 stent 22 stent balloon ([id number]) Device Usage Item Name Manufacture Quantity Catalog Hospital Part Current Minimal Lot# / Number Charge Number Stock Stock Serial# Code ACIST Syringe Acist 1 03170 572838 027878 607344 20 (17162) Medical Systems Inc Bag Decanter Microtek 1 2001S 411922 09384 993003 5 (2001S) Medical Inc. Medline Cath Medline 1 [id number] 413346 87389 518659 5 Pack ([id number]) ACIST Hand Acist 1 27864 682814 158937 494237 5 Control Medical (83842) Systems Inc ACIST Manifold Acist 1 96732 887967 161222 793040 5 (66087) Medical Systems Inc Tegaderm 4 x 4 3M 1 1626W 989601 128368 337820 5 (1626W) DIAGNOSTIC Cardinal 1 JI4049 822454 86343 782329 30 Multipack 5Fr Health catheter set (CX0400) SHEATH 5FR Terumo 1 ZVZ094 074452 027334 611964 5 [place] (GHN167) EMERALD Guide Cardinal 1 502-455 669354 852332 255369 5 Wire (502-455) Health MULTIPACK Cardinal 1 267954 5 Pigtail 5 Fr Health catheter MULTIPACK JL Cardinal 1 522920 5 4.0 5Fr Health catheter MULTIPACK 3DRC Cardinal 1 500609 5 5Fr catheter Health DIAGNOSTIC AR2 Cardinal 1 [id number] 533631 096041 464473 20 MOD 5 Fr Health catheter (330506K) SHEATH 6FR Terumo 1 WFH012 244823 311015 785909 40 [place] (KHE589) GUIDE 6FR AL Medtronic 1 [id number] 030019 23389 444256 1 2.0 catheter (VM2KU26) [employer] [place] 1 47150D 798689 366564677 530795 5 Verrata Plus pressure wire (21891A) [place] EUPHORA 3.5 Medtronic 1 [id number] 342594 229104 338507 1 [id number] x 12 balloon ([id number]) ABIOLA RX 2.5 x Medtronic 1 [id number] 879847 4500115 964005 5 [id number] 22 stent ([id number]) EXOSEAL 6Fr Cardinal 1 EX600 933181 512029 826580 10 (EX600) Health FEMSTOP Gold [facility] [place] 1 M10498 165948 830363 713082 5 ([id number]) Signature Audit [place] Stage Time Signature Unsigned Intra-Procedure 09/30/2019 Charlotte Kelsey 4:25:27 PM RT(R) Intra-Procedure 09/30/2019 Jaleesa Booker RN 4:25:54 PM Intra-Procedure 09/30/2019 Rangel Ortiz MD 4:26:14 PM 10/13/2019 10:07:42 AM Intra-Procedure 10/13/2019 Rangel Ortiz 10:09:04 AM [address] [place] [address]
[~2019-09-29 20:34] MED LIST changes: +KEPPRA500 MG PO
[2019-09-29 20:54] VITALS: BP 161/87
[2019-09-29 20:55] LABS: BASOPHILS 0.2 % (0-2); EOSINOPHILS 2.4 % (0-7); HEMATOCRIT 46.6 % (42.0-54.0); HEMOGLOBIN 15.8 g/dL (13.5-17.5); IMMATURE GRANULOCYTES 0.1 % (0-5); LYMPHOCYTES 18.8 % (15-50); MCH 32.2 pg (26.0-34.0); MCHC 33.9 g/dL (31.0-37.0); MCV 94.9 fL (80.0-100.0); MEAN PLATELET VOLUME 10.6 fL (7.4-10.4); MONOCYTES 9.7 % (2-11); NEUTROPHILS 68.8 % (40-80); PLATELET COUNT 163 10x3/uL (130-400); RBC 4.91 10x6/uL (4.20-6.10); WBC 8.3 10x3/uL (4.8-10.8)
--- NOTE | 2019-09-29 20:57 | NUR ---
PT RECIEVED ONE SL NITRO, PT REPORTS NO PAIN AFTER NITRO.
[2019-09-29 20:58] VITALS: BP 138/93
[2019-09-29 21:03] LABS: APTT 32.7 SECONDS (22.8-39.4); INR 1.04 (0.85-1.17); PROTIME 13.1 SECONDS (11.6-15.0)
[2019-09-29 21:08] VITALS: BP 95/66
[2019-09-29 21:08] LABS: CALC OSMOLALITY 276 mosm/kg (275-300); CALCIUM 8.9 mg/dL (8.5-10.1); CARBON DIOXIDE 31.3 mmol/L (21.0-32.0); CHLORIDE - SERUM 101 mmol/L (98-107); CREATININE - SERUM 1.2 mg/dL (0.6-1.3); GLUCOSE 103 mg/dL (74-106); POTASSIUM - SERUM 3.9 mmol/L (3.5-5.1); SODIUM 137 mmol/L (136-145); UREA NITROGEN 21 mg/dL (7-18); eGFR NON AFRICAN AMERICAN 62 mL/min (90-120)
--- NOTE | 2019-09-29 21:18 | NUR ---
PT PROVIDED WITH BLANKETS AT THIS TIME.
[2019-09-29 21:20] VITALS: BP 109/72
[2019-09-29 21:25] LABS: ALBUMIN 3.8 g/dL (3.4-5.0); ALKALINE PHOSPHATASE 96 U/L (46-116); ALT (SGPT) 32 U/L (10-68); BILIRUBIN - TOTAL 0.92 mg/dL (0.2-1.3); CKMB 2.1 U/L (0.0-3.6); CREATINE KINASE 161 UL (21-232); PROTEIN - SERUM 7.1 g/dL (6.4-8.2); TROPONIN-I < 0.017 ng/mL (0.000-0.060)
[2019-09-29 21:50] VITALS: BP 118/71
[2019-09-29 22:20] VITALS: BP 125/66
[2019-09-29] MEDS ORDERED: ASPIRIN EC81 M1 PO (23:03)
[2019-09-29] MEDS ORDERED: AMBIEN10 MG PO (23:04)
[2019-09-29] MEDS ORDERED: FISH OIL 1,0001 CA1 PO (23:04)
--- NOTE | 2019-09-29 23:15 | NUR ---
PATIENT ARRIVED FROM ER VIA WHEELCHAIR. PATIENT IS ALERT AND ORIENTED, RESTING COMFORTABLY IN BED. RESPIRATIONS ARE EVEN AND UNLABORED. NO S/S OF DISTRESS. NO C/O PAIN. PATIENT WEARING A HEART MONITOR THAT WAS PUT ON BY IS PCP. CALL LIGHT WITHIN REACH. WILL CPOC.
[2019-09-29 23:16] VITALS: Ht 152.4 cm; Wt 67.3 kg
[2019-09-30] VITALS: BP 152/86
[2019-09-30 04:00] VITALS: BP 117/71
[2019-09-30 05:27] LABS: BASOPHILS 0.3 % (0-2); EOSINOPHILS 3.5 % (0-7); HEMATOCRIT 42.2 % (42.0-54.0); HEMOGLOBIN 14.3 g/dL (13.5-17.5); LYMPHOCYTES 26.6 % (15-50); MCH 32.1 pg (26.0-34.0); MCHC 33.9 g/dL (31.0-37.0); MCV 94.8 fL (80.0-100.0); MEAN PLATELET VOLUME 10.7 fL (7.4-10.4); MONOCYTES 10.2 % (2-11); NEUTROPHILS 59.4 % (40-80); PLATELET COUNT 150 10x3/uL (130-400); RBC 4.45 10x6/uL (4.20-6.10); WBC 6.7 10x3/uL (4.8-10.8)
[2019-09-30 05:55] LABS: ALBUMIN 2.9 g/dL (3.4-5.0); ALKALINE PHOSPHATASE 75 U/L (46-116); ALT (SGPT) 24 U/L (10-68); BILIRUBIN - TOTAL 0.78 mg/dL (0.2-1.3); CALC OSMOLALITY 281 mosm/kg (275-300); CALCIUM 8.1 mg/dL (8.5-10.1); CARBON DIOXIDE 27.3 mmol/L (21.0-32.0); CHLORIDE - SERUM 106 mmol/L (98-107); CKMB 0.8 U/L (0.0-3.6); CREATINE KINASE 99 UL (21-232); CREATININE - SERUM 1.2 mg/dL (0.6-1.3); GLUCOSE 123 mg/dL (74-106); POTASSIUM - SERUM 3.7 mmol/L (3.5-5.1); PROTEIN - SERUM 5.9 g/dL (6.4-8.2); SODIUM 139 mmol/L (136-145); UREA NITROGEN 22 mg/dL (7-18); eGFR NON AFRICAN AMERICAN 62 mL/min (90-120)
[2019-09-30 06:12] LABS: TROPONIN-I < 0.017 ng/mL (0.000-0.060)
--- NOTE | 2019-09-30 07:20 | NUR ---
ASSESSMENT DONE. DENIES NEEDS
[2019-09-30 08:00] VITALS: BP 126/72
--- NOTE | 2019-09-30 10:22 | NUR ---
I have reviewed this patient and I concur with the Shift Assessment completed by the Licensed Practical Nurse today this shift.
[2019-09-30 11:36] VITALS: BP 137/79
--- NOTE | 2019-09-30 14:08 | HP ---
PATIENT: LEAH GUSMAN MEDICAL RECORD: [id number] ACCOUNT: [id number] LOCATION:[address] : [birth year] ADMISSION DATE: 09/29/19 PCP: ZUHAIR SANCHEZ DO HISTORY AND PHYSICAL EXAMINATION DIAGNOSES: 1. Unstable angina. 2. Coronary artery disease. 3. Previous myocardial infarction, PTCA and stent. 4. Hypertension. 5. Hyperlipidemia. 6. Family history of coronary artery disease. 7. Palpitations. 8. Intermittent bradycardia. HISTORY OF PRESENT ILLNESS: This is a gentleman, who has past history of coronary artery disease, PTCA and stent by Dr. Mosquera in conjunction with an inferior myocardial infarction approximately 7 years ago. He has had increasing shortness of breath, dyspnea on exertion, followed by Dr. Sanchez. He has also had palpitations. He is currently wearing a multiday monitor. He had documentation of heart rates going into the 40s, but nothing below 40. He is not symptomatic with the bradycardia. He has not had any tachyarrhythmias that explain the palpitations since he has been wearing the monitor. Shortness of breath has progressed and now he has developed chest pain. The chest pain that he has developed over the past 2 days is just like that of his previous myocardial infarction. It is a dull aching, band-like pressure sensation across the anterior chest, radiation to the left arm and the left shoulder area. It became quite severe yesterday with episodes at rest. It awoke him last night. He presented to the Emergency Room. Since being here, he has had recurrent episodes requiring morphine for relief. He is currently having 4/10 chest pain now. His EKG is with no acute ST-T abnormalities. Troponin is normal. PHYSICAL EXAMINATION: CONSTITUTIONAL/GENERAL APPEARANCE: Well nourished, well developed, appears stated age. EYES: Lids and conjunctivae noninjected. No discharge. No pallor. ENT: Lips within normal limit. No cyanosis. No pallor. NECK: Carotid arteries, bilateral normal upstroke. No bruits. No thrills. No jugular venous pressure or distention. CERVICAL LYMPH NODES: Nontender. Nonenlarged. THYROID: Not enlarged. No nodules. CARDIOVASCULAR: Precordial exam, nondisplaced. No heaves or pericardial thrills. Rate and rhythm, regular. Heart sounds, normal S1, normal S2. No S3, no gallop, no rub. Systolic murmur, not heard. Diastolic murmur, not heard. RESPIRATORY: Respiratory effort, unlabored. Normal curvature. No thoracic deformity. No chest wall tenderness. Percussion, resonant. Auscultation, clear. No wheezes, no rales, no rhonchi. ABDOMEN: Soft, nondistended, nontender. No abdominal pain, no vomiting and normal appetite. MUSCULOSKELETAL: No joint tenderness, normal gait, normal tone. SKIN: Warm and dry. OVERALL IMPRESSION: Unstable angina in a patient with a past history of coronary artery disease, multiple other risk factors. Most likely, he has recurrent hemodynamically significant disease with continued pain. We will HISTORY AND PHYSICAL [id number] LEAH GUSMAN proceed with coronary angiography. Further care depends upon findings of the angiography. TRANSINT:[id number] Voice Confirmation ID: [id number] DOCUMENT ID: [id number] CARMEN NICOLE MD at 1408 CC: [id number] DICTATION DATE: 09/30/19838 FLOOR WORKER: 09/30/19 0942 ADM IN [facility] [address] [place] [address]
--- NOTE | 2019-09-30 15:40 | NUR ---
to label paster per bed
[2019-09-30 15:53] VITALS: BP 109/61
--- NOTE | 2019-09-30 16:40 | NUR ---
RETURN FROM MATERIAL HANDLER 1ST SHIFT PER BED. RT GROIN WITH PHEM STOP IN PLACE.
[2019-09-30] MEDS ORDERED: PLAVIX75 MG PO (17:11)
--- NOTE | 2019-09-30 18:14 | NUR ---
WITHOUT CHANGES OR DISTRESS NOTED AT THIS TIME. DENIES NEEDS
--- NOTE | 2019-09-30 21:42 | NUR ---
FEMSTOP REMOVED, NO SWELLING, BLEEDING OR HEMATOMA NOTED TO RIGHT GROIN. DRSG PLACED OVER INCISION. IV REMOVED, DISCHARGE INSTRUSTIONS GIVEN. AT BED SIDE.
--- NOTE | 2019-10-01 08:09 | MORECARE ---
CASE MANAGEMENT DISCHARGE SUMMARY PATIENT: LEAH GUSMAN UNIT: [id number] ADM DATE: 09/29/19 AGE: 79 : 42 SEX: M ROOM/BED: D.2121 AUTHOR: CHECO RICH PHYSICIAN: REFERRING PHYSICIAN: CARMEN NICOLE MD DATE OF SERVICE: 10/01/19 Discharge Plan Patient Name: LEAH GUSMAN [facility] [facility] 1940 Planned Disposition: Home Anticipated Discharge Date: 09/30/19 Discharge Date: 09/30/2019 Expected LOS: 1 Initial Reviewer: [email or web address] Initial Review Date: 10/01/2019 Generated: 10/01/19 9:09 am Patient Name: LEAH GUSMAN Page [phone] at 0809 All edits/amendments must be made on the electronic document DICTATION DATE: 10/01/19808 PROFESSIONAL EMPLOYER CONSULTANT: YENIFER 10/01/19808 RPT#: [id number] DC DATE:09/30/19 STATUS: DIS IN [facility] [address] [facility] [place] [address] END OF REPORT
--- NOTE | 2019-10-01 12:49 | DS ---
PATIENT:LEAH GUSMAN :42 MEDICAL RECORD: [id number] DISCHARGE SUMMARY ADMISSION DATE: 09/29/19 DISCHARGE DATE: 09/30/19 DIAGNOSES: 1. Unstable angina. 2. Coronary artery disease. 3. Percutaneous transluminal coronary angioplasty stent of left anterior descending this admission. 4. Hypertension. 5. Hyperlipidemia. HOSPITAL COURSE: Mr. Gusman presents with anginal symptomatology, found to have significant disease of the LAD, underwent successful PTCA stent of the LAD, was discharged home with the addition of Plavix to his medical regimen. He will follow up with [facility] in 1 month. TRANSINT:[id number] Voice Confirmation ID: [id number] DOCUMENT ID: [id number] CARMEN NICOLE MD at 1249 CC: [id number] DICTATION DATE: 09/30/19 1621 METAL CASTING TRADES WORKER: 10/01/19 0620 DIS IN 09/30/19 [address] [place] [address]
--- NOTE | 2019-10-01 12:49 | OP ---
PATIENT NAME: LEAH GUSMAN MEDICAL RECORD: [id number] :42 LOCATION:D.M2 D.2121 ADMISSION DATE:09/29/19 SURGEON: CARMEN NICOLE MD DATE OF OPERATION: 09/30/2019 PROCEDURES: 1. PTCA stent LAD. 2. IFR. 3. Left heart catheterization. 4. Selective coronary angiography. 5. Left ventriculogram. INDICATION: Unstable angina and coronary artery disease. PROCEDURE IN DETAIL: After informed consent was obtained and after detailed explanation of risks, benefits as well as alternative therapies, the patient elected to proceed with angiogram and angioplasty. The right femoral area was prepped and draped in normal sterile fashion. Right femoral artery was cannulated via modified Seldinger technique with placement of 6-Upper Sorbian sheath. All catheters exchanged through this sheath. FINDINGS: Left ventriculogram was performed in a standard 30-degree CROWELL view reveals decreased ejection fraction in the 35% range. SELECTIVE CORONARY ANGIOGRAPHY: 1. Left main showed no significant angiographic disease. 2. Left circumflex has mild irregularities, but no flow-limiting stenosis. 3. Left anterior descending has previously placed stents up to 80% in-stent restenosis and IFR was abnormal at 0.78. 4. Right coronary is chronically totally occluded right. PTCA STENT OF THE LAD: The stent used was a 2.5 x 22 mm Hunter. Result was 0% residual stenosis. OVERALL IMPRESSION: Successful PTCA stent of the LAD going from 80% initial stenosis to 0% residual. TRANSINT:[id number] Voice Confirmation ID: [id number] DOCUMENT ID: [id number] CARMEN NICOLE MD at 1249 CC: [id number] DICTATION DATE: 09/30/19 1623 WATER PURIFIER OPERATOR: 09/30/19 2310 DIS IN 09/30/19 [place] [id number]
== END 2019-09-30 21:43 | disposition home or self-care (01) ==
LOC: D.ER 20:34 → OBSVTIME 21:58 → D.M2 21:58
PROVIDERS: Family Medicine; ADMIT Internal Medicine Interventional Cardiology; ATTEND Internal Medicine Interventional Cardiology
DX: I25.110 Atherosclerotic heart disease of native coronary artery with unstable angina pectoris (principal); I10 Essential (primary) hypertension; E78.5 Hyperlipidemia, unspecified; R00.2 Palpitations; Z82.49 Family history of ischemic heart disease and other diseases of the circulatory system; R00.1 Bradycardia, unspecified
CPT/HCPCS: 93458; 93571; C9600

== ENCOUNTER → 2020-04-11 09:22 | Outpatient (CLI) | payer MEDICARE, OTHER ==
[~2020-04-11 09:22] MED LIST changes: +ASPIRIN EC81 M1 PO
== END | disposition home or self-care (01) ==
LOC: D.US 09:22 → D.NM 10:00
PROVIDERS: ATTEND General Practice
DX: I70.1 Atherosclerosis of renal artery (principal)

== ENCOUNTER → 2020-05-09 11:46 | Outpatient (CLI) | payer MEDICARE, OTHER | END | disposition home or self-care (01) | LOC: D.CT 08:00 | PROVIDERS: ATTEND Internal Medicine Cardiovascular Disease | DX: I71.2 Thoracic aortic aneurysm, without rupture (principal); I71.4 Abdominal aortic aneurysm, without rupture ==

== ENCOUNTER 2020-05-30 05:39 | Outpatient (CLI) | payer MEDICARE, OTHER ==
[~2020-05-30] VITALS: Ht 170.2 cm; Wt 67.3 kg
--- NOTE | ~2020-05-30 | HEMODYNAMI ---
PATIENT:LEAH GUSMAN MEDICAL RECORD: [id number] : 42 LOCATION:CARL ADMISSION DATE: 05/30/20 Generatedon:05/30/20209:17 Patient name: LEAH GUSMAN Patient #: [id number] SSN: [id number] : 1940 Date of study: 05/30/2020 Page: Of Hemodynamic Procedure Report Patient Data Patient Demographics Procedure consent was obtained First Name: LEAH Gender: Male Last Name: NASEEM : 1940 [facility] Initial: WILLIAM Age: 79 year(s) Patient #: [id number] Race: SSN: [id number] Additional ID: [id number] Contact details Address: [address] [place] [address] State: [place] City: [place] Zip code: [address] Past Medical History Allergies: No known allergies Admission Admission Data Admission Date: 05/30/2020 Admission Time: 5:39 Height (in.): 67 BSA: 1.78 (m2) Height (cm.): 170.18 BMI: 23.18 (kg/m2) Weight (lbs.): 148 Weight (kg.): 67.13 Procedure Procedure Types Cath Procedure Peripheral Cath Diagnostic Procedure Virologist Peripheral Procedures Abd/Extremity Renal Renal Unilateral Procedure Description Procedure Date Procedure Date: 05/30/2020 Procedure Start Time: 8:19 Procedure Staff Name Function Taj Menchaca MD Performing Physician Nneka Nichols RT Cleaner Carpet And Upholstery Sole Watts RN Nurse Luther Quezada RT Scrub Procedure Data Cath Procedure Fluoroscopy Diagnostic fluoroscopy Total fluoroscopy Time: 9.5 time: 9.5 min min Diagnostic fluoroscopy Total fluoroscopy dose: 651 dose: 651 mGy mGy Contrast Material Contrast Material Type Amount (ml) Isovue 300 115 Entry Location Entry Primary Successful Side Size Upsize Upsize Entry Closure Succ essful Closure Location (Fr) 1 (Fr) 2 (Fr) Remarks Device Remarks Femoral Angio-VIP artery 6Fr Procedure Medications Medication Administration Route Dosage Versed I.V. 1 mg Fentanyl I.V. 50 mcg Lidocaine 1% added to field Heparin Flush Bag added to field 3 bags (1000units/500ml NS) Versed I.V. 1 mg Fentanyl I.V. 50 mcg Heparin Bolus I.V. 5000 units Hemodynamics Rest BSA: 1.78 (m2) O2 Consumption: Estimated: 204.76 (ml/min) O2 Consumption indexed : Estimated:115.03 (ml/min/m) Heart Rate: 71 (bpm) Snapshots Pre Cath Intra NCS Post Cath Vital Signs Time Heart Resp SPO2 etCO2 NIBP (mmHg) Rhythm Pain Sedation Rate (ipm) (%) (mmHg) Status Level (bpm) 7:59:44 65 7 99 37.4 165/90(120) NSR 0 (11) 10(A) , No pain 8:04:08 66 12 96 31.4 169/86(129) NSR 0 (11) 10(A) , No pain 8:08:30 75 14 99 16.4 158/90(123) NSR 0 (11) 10(A) , No pain 8:12:50 77 13 100 36 162/90(128) NSR 0 (11) 10(A) , No pain 8:17:11 73 15 86 33 181/104(121) NSR 0 (11) 10(A) , No pain 8:21:37 75 10 98 20.2 173/96(130) NSR 0 (11) 8(A) , No pain 8:25:53 80 16 98 40.5 159/93(136) NSR 0 (11) 8(A) , No pain 8:30:11 72 11 100 14.2 165/91(138) NSR 0 (11) 8(A) , No pain 8:34:27 73 11 99 13.5 156/90(137) NSR 0 (11) 8(A) , No pain 8:39:24 74 12 99 25.5 149/80(116) NSR 0 (11) 8(A) , No pain 8:43:40 74 11 99 15.7 144/87(123) NSR 0 (11) 8(A) , No pain 8:47:56 77 14 100 39 145/79(116) NSR 0 (11) 8(A) , No pain 8:51:48 73 13 99 37.5 141/84(106) NSR 0 (11) 8(A) , No pain 8:54:44 68 11 99 37.5 149/81(106) NSR 0 (11) 8(A) , No pain 8:59:00 74 16 99 41.2 149/88(115) NSR 0 (11) 8(A) , No pain 9:03:18 67 11 99 0 145/80(125) NSR 0 (11) 8(A) , No pain 9:07:34 71 17 100 29.2 153/82(114) NSR 0 (11) 8(A) , No pain 9:11:54 68 11 99 24 149/76(127) NSR 0 (11) 8(A) , No pain 9:16:12 65 11 98 17.2 142/81(119) NSR 0 (11) 8(A) , No pain Medications Time Medication Route Dose Verified Delivered Reason Notes Effec tiveness by by 8:19:51 Versed I.V. 1 mg Taj Whipple for Mac Menchaca RN sedation 8:20:04 Fentanyl I.V. 50 Taj Whipple for mcg Mac Menchaca RN sedation 8:20:18 Lidocaine 1% added Taj Vang for local to Bernarda Menchaca MD anesthetic field 8:20:33 Heparin Flush added 3 Taj Vang used for Bag to bags Bernarda Menchaca MD procedure (1000units/500ml field NS) 8:27:20 Versed I.V. 1 mg Taj Whipple for Mac Menchaca RN sedation 8:27:29 Fentanyl I.V. 50 Taj Whipple for mcg Mac Menchaca RN sedation 8:37:02 Heparin Bolus I.V. 5000 Taj Whipple Per units Mac Menchaca RN physician Procedure Log Time Note 7:42:19 Patient Height : 67 inches 7:42:25 Patient Weight : 148 lbs 7:42:30 Use device set IR Diagnostic 7:43:38 SHEATH 5FR Bynum (ZKV048) opened to sterile field. 7:43:39 TUBING High Pressure Extension (IABP) opened to sterile field. 7:43:40 Micropuncture VSI 4FR kit opened to sterile field. 7:43:41 DOC .035 wire (D52486) opened to sterile field. 7:43:42 Tegaderm 4 x 4 (1626W) opened to sterile field. 7:43:43 Sterile Angiographic Pack opened to sterile field. 7:43:44 Bag Decanter (2001S) opened to sterile field. 7:43:45 ACIST Manifold (13028) opened to sterile field. 7:43:47 ACIST Hand Control (97910) opened to sterile field. 7:43:48 ACIST Syringe (52630) opened to sterile field. 7:44:00 Time tracking: Regular hours (M-F 7:00 - 5:00) 7:44:48 7:44:51 ----Pre-sedation anethsthesia assessment.---- 7:44:54 Previous problem with sedation/anesthesia? No ? 7:44:57 Snore? Yes 7:45:05 Sleep apnea? Yes 7:45:08 Deviated septum? No 7:45:10 Opens mouth fully? Yes 7:45:11 Sticks out tongue? Yes 7:45:15 Airway obstruction? No ? 7:45:20 Dentures? Yes OUT 7:45:26 7:45:31 Pre procedure: right dorsailis pedis pulse Doppler 7:45:36 Pre procedure: right posterior tibial pulse Doppler 7:45:47 Right groin area was prepped with chlora-prep and draped in sterile fashion 7:45:54 7:46:00 Patient diabetic? No. 7:46:05 Is patient on blood thinner?Yes 7:46:09 ACC The patient was administered the following blood thiners within the last 24 hours: ACCAspirin 7:46:44 Patient allergic to No known allergies 7:46:58 Is the patient allergic to Iodine/contrast media? No. 7:47:14 Patient NPO since Midnight. 7:47:18 Pre-op teaching completed and patient verbalized understanding. 7:47:19 Pre-procedure instructions explained to patient. 7:47:25 H&P Date Dictated: 05/30/2020 Within 30 days and on chart., H&P Addendum completed by physician on day of procedure. (MUST COMPLETE FOR ALL OUTPATIENTS). 7:47:38 Patient received from Outpatients to IR Alert and oriented. Tansferred to table in Supine position. 7:47:49 Plan of Care:Hemodynamics will remain stable., Cardiac rhythm will remain stable., Comfort level will be maintained., Respiratory function will remain adequate., Patient/ family verbilizes understanding of procedure., Procedure tolerated without complication., Recovers from procedure without complications.. 7:47:51 7:47:54 Signed procedure consent form obtained from patient. 7:47:56 7:58:28 Vital chart was started 8:01:45 ECG and BP/O2 sat monitors applied to patient. 8:01:47 Baseline sample Acquired. 8:01:51 Full Disclosure recording started 8:01:53 8:08:03 Angiodynamics Omniflush 5Fr 65cm (10220491) opened to sterile field. 8:18:41 Physician arrived 8:18:41 --------ALL STOP TIME OUT------ 8:18:42 Final Timeout: patient, procedure, and site verified with staff and physician. All members of the team are in agreement. 8:19:09 Fire Safety Assessment: A--An alcohol-based skin anteseptic being used preoperatively., C--Open oxygen or nitrous oxide is being used. 8:19:18 3a) 45-59 Moderately reduced kidney function. 8:19:25 Procedure started. 8:19:30 Local anesthetic to right femoral artery with Lidocaine 1% by Taj Menchaca MD.INITIAL ACCESS ONLY 8:19:51 Versed 1 mg I.V. was administered by Sole Watts RN; for sedation; Verbal order read back and verified. 8:20:04 Fentanyl 50 mcg I.V. was administered by Sole Watts RN; for sedation; Verbal order read back and verified. 8:20:18 Lidocaine 1% added to field was administered by Taj Menchaca MD; for local anesthetic; Verbal order read back and verified. 8:20:33 Heparin Flush Bag (1000units/500ml NS) 3 bags added to field was administered by Taj Menchaca MD; used for procedure; Verbal order read back and verified. 8:27:20 Versed 1 mg I.V. was administered by Sole Watts RN; for sedation; Verbal order read back and verified. 8:27:29 Fentanyl 50 mcg I.V. was administered by Sole Watts RN; for sedation; Verbal order read back and verified. 8:29:51 GLIDE CATHETER 5FR COBRA 65cm (CG502) opened to sterile field. 8:31:20 GLIDE WIRE ANGLE 180cm (IK2623) opened to sterile field. 8:33:48 TORQUE DEVICE PLASTIC .038 ( TD01) opened to sterile field. 8:34:10 Becerra 180 wire (P46391) opened to sterile field. 8:34:11 Cook TIO 1 6FR. Guide sheath opened to sterile field. 8:34:12 INFLATOR BasixTOUCH (RH1617) opened to sterile field. 8:37:02 Heparin Bolus 5000 units I.V. was administered by Sole Watts RN; Per physician; Verbal order read back and verified. 8:37:49 Inflate balloon Inflation number: 1 A Evercross 3 x 2 x 135 Balloon ([id number]) was prepped and advanced across the Undefined1 , then inflated . 8:40:20 BECERRA 260 wire (H11829) opened to sterile field. 8:52:31 Inflate balloon Inflation number: 2 A Evercross 5 x 2 x 135 Balloon ([id number]) was prepped and advanced across the Undefined1 , then inflated . 8:53:12 Place stent Inflation Number: 3 A Visipro 6 x 27 x 135 Stent ([id number]) was prepped and advanced across the Undefined1 . The stent was deployed at 0 SELVIN for 0:00 (min:sec) . 8:55:11 SHEATH 6FR Bynum (RKK709) opened to sterile field. 9:04:17 ANGIOSEAL-VIP PLUS 6 FR opened to sterile field. 9:05:16 A sheath was inserted into the Femoral artery 9:05:16 Sheath removed intact; hemostasis achieved with Angio-VIP 6Fr to the Femoral artery. 9:05:20 Procedure ended.(Physican Out) 9:05:56 Fluoroscopy time 09.50 minutes. 9:06:01 Fluoroscopy dose: 651 mGy 9:06:01 Flurop Dose total: 651 9:06:13 Contrast amount:Isovue 300 115ml. 9:11:17 Procedure and supply charges have been captured, reviewed, submitted and are correct. 9:16:29 Report given to Outpatients. 9:17:05 Vital chart was stopped Intervention Summary Intervention Notes Time ActionType Lesion and Equipment Used Action# Pressure Duration Attributes 8:37:49 Inflate Undefined1 Evercross 3 x 2 x 1 0 00:00 balloon 135 Balloon ([id number]) 8:52:31 Inflate Undefined1 Evercross 5 x 2 x 2 0 00:00 balloon 135 Balloon ([id number]) 8:53:12 Place stent Undefined1 Visipro 6 x 27 x 3 0 00:00 135 Stent ([id number]) Device Usage Item Name Manufacture Quantity Catalog Number Hospital Part Curr ent Minimal Lot# / Charge Number Stock Stock Serial# Code SHEATH 5FR Terumo 1 [id number] 168759 7826 19 5 Bynum (OBF247) TUBING High [facility] Medical 1 [id number] 178008 336875 1464 87 5 Pressure Extension (IABP) Micropuncture VSI VSI VASCULAR 1 7266V 237177 0841 61 5 4FR kit SOLUTIONS DOC .035 wire DocbookMD 1 E26208 123724 7821 48 5 (Q89535) Tegaderm 4 x 4 3M 1 1626W 529265 360351 4478 50 5 (1626W) Sterile Cardinal 1 [id number] 239571 2223 16 5 Angiographic Pack Health Bag Decanter Microtek 1 438226 70536 9841 70 5 () Medical Inc. ACIST Manifold Acist Medical 1 36644 253211 006923 4176 74 5 (96173) Systems Inc ACIST Hand Acist Medical 1 39787 235564 896367 4942 58 5 Control (47494) Systems Inc ACIST Syringe Acist Medical 1 64310 591252 012816 3031 26 20 (39274) Systems Inc Angiodynamics Angiodynamics 1 71622269 059888 009646 9967 85 5 Omniflush 5Fr 65cm (99125175) GLIDE CATHETER Terumo 1 CG502 437959 8852 95 5 5FR COBRA 65cm (CG502) GLIDE WIRE ANGLE Terumo 1 SA4932 426509 024531 2854 99 5 180cm (NX2815) TORQUE DEVICE [place] 1 TD01 915094 841140 8665 81 5 PLASTIC .038 ( Scientific TD01) Becerra 180 wire Indigoz Medical 1 K69533 699757 381936 3197 951 5 [id number] ([id number]) Cook TIO 1 6FR. DocbookMD 1 V22075 566265 7843 61 5 [id number] Guide sheath INFLATOR [facility] 1 YE6044 593133 098568 3144 11 5 [id number] BasixTOUCH (TT6090) Evercross 3 x 2 x Medtronic 1 [id number] 032360 687422 7449 90 5 135 Balloon ([id number]) BECERRA 260 wire Cook [facility] 1 M85996 253725 75957 9994 20 5 [id number] (T53114) Evercross 5 x 2 x Medtronic 1 [id number] 426922 097488 3537 95 5 135 Balloon ([id number]) Visipro 6 x 27 x Medtronic 1 [id number] 048156 548330 3823 93 5 [id number] 135 Stent ([id number]) SHEATH 6FR Terumo 1 PTU948 183757 740269 6893 38 40 Bynum (DXO963) ANGIOSEAL-[facility] 1 574474 233777 717506 5625 26 5 [id number] PLUS 6 FR Signature Audit [place] Stage Time Signature Unsigned Intra-Procedure 05/30/2020 Nneka Nichols 9:17:01 AM RT(R) [facility] [address] [place] [address]
[2020-05-30 06:19] LABS: BASOPHILS 0.5 % (0-2); EOSINOPHILS 3.5 % (0-7); HEMATOCRIT 44.4 % (42.0-54.0); HEMOGLOBIN 14.8 g/dL (13.5-17.5); IMMATURE GRANULOCYTES 0.1 % (0-5); LYMPHOCYTES 25.8 % (15-50); MCH 31.6 pg (26.0-34.0); MCHC 33.3 g/dL (31.0-37.0); MCV 94.7 fL (80.0-100.0); MONOCYTES 9.8 % (2-11); NEUTROPHILS 60.3 % (40-80); PLATELET COUNT 175 10x3/uL (130-400); RBC 4.69 10x6/uL (4.20-6.10); RDW 13.1 % (11.5-14.5)
[2020-05-30 06:39] LABS: ANION GAP 8.3 mmol/L (8-16); CALCIUM 9.1 mg/dL (8.5-10.1); CARBON DIOXIDE 31.8 mmol/L (21.0-32.0); CREATININE - SERUM 1.4 mg/dL (0.6-1.3); POTASSIUM - SERUM 4.1 mmol/L (3.5-5.1)
[2020-05-30 06:40] LABS: APTT 30.9 SECONDS (22.8-39.4); INR 0.94 (0.85-1.17); PROTIME 12.5 SECONDS (11.6-15.0)
[2020-05-30 06:52] VITALS: BP 148/85; Ht 170.2 cm; Wt 67.3 kg
--- NOTE | 2020-05-30 11:40 | NUR ---
PATIENT AMBULATING AROUND ROOM WITHOUT UNSTEADINESS OR DIZZINESS, NO CHANGE IN GROIN ASSESSMENT. LEFT WRIST PIV DC'D WITH TIP INTACT, PATIENT DRESSING IN PERSONAL CLOTHING. 1219 DISCHARGE INSTRUCTIONS REVIEWED WITH PATIENT AND SPOUSE
== END 2020-05-30 12:00 | disposition home or self-care (01) ==
LOC: D.OPS 05:39 → D.RAD 05:39 → D.SP 08:00 → D.RAD 09:00 → D.OPS 12:00
PROVIDERS: ATTEND General Practice
DX: I70.1 Atherosclerosis of renal artery (principal); I25.2 Old myocardial infarction

== ENCOUNTER → 2021-01-30 13:43 | Outpatient (CLI) | payer MEDICARE, OTHER ==
[2020-05-30 06:52] VITALS: BMI 23.2
[2021-01-30 15:39] LABS: ALBUMIN 3.8 g/dL (3.4-5.0); ANION GAP 10.7 mmol/L (8-16); BILIRUBIN - TOTAL 0.55 mg/dL (0.2-1.3); CALCIUM 9.4 mg/dL (8.5-10.1); CREATININE - SERUM 1.4 mg/dL (0.6-1.3); POTASSIUM - SERUM 4.7 mmol/L (3.5-5.1); PROTEIN - SERUM 7.2 g/dL (6.4-8.2)
== END | disposition home or self-care (01) ==
LOC: D.CT 13:30
PROVIDERS: ATTEND Family Medicine
DX: R10.32 Left lower quadrant pain (principal)

== ENCOUNTER → 2021-05-11 13:44 | Outpatient (CLI) | payer MEDICARE, OTHER ==
[2020-05-30 06:52] VITALS: BMI 23.2
== END | disposition home or self-care (01) ==
LOC: D.CT 13:15
PROVIDERS: ATTEND Internal Medicine Cardiovascular Disease
DX: I71.4 Abdominal aortic aneurysm, without rupture (principal); I71.2 Thoracic aortic aneurysm, without rupture